=== PATIENT | male | born 1950 | race Caucasian/White ===

== ENCOUNTER 2016-10-14 19:10 | Inpatient (IN) | payer BC ==
[~2016-10-14] VITALS: Ht 179.1 cm; Wt 77.6 kg
--- NOTE | ~2016-10-14 | CR72 ---
[facility] A Service of [facility] & [facility] RADIOLOGY TEXT RESULTS PATIENT: SUNNY MENA JR LOCATION: [place] [id number] : [birth year] UNIT #: [id number] AGE: [address]: Jaleesa Yan MD SEX: M ORDER DR: [id number] [facility] [address] [facility]. [place], [place] [address] [id number] I MR#: [id number] Acc #: [id number] NAME: SUNNY MENA : 1950 SEX: M STUDY DATE/TIME: 10/21/2016 10:40 UNIT: [facility] ROOM: [facility] STUDY DESCRIPTION: CR Chest Single View Portable Attending Physician: Jaleesa Yan M.D. Ordering Physician: Yoav Wong M.D. Primary Care Physician: Primary Care Physician No MEDICAL IMAGING REPORT This report is preliminary unless electronic signature is present EXAM Portable chest, 10/21/2016 HISTORY Shortness of breath status post extubation today. Smoking history, followup infiltrates. FINDINGS Compared with 10/16/2016 the endotracheal tube has been removed. Right arm approach PICC line is unchanged. Nasogastric tube remains in place with tip below the diaphragm not visualized. Slight decrease in the diffuse bilateral infiltrates. Probable small left pleural effusion. No pneumothorax. IMPRESSION 1. Removal of endotracheal tube compared with 10/16/2016. 2. Slight decrease in the infiltrates throughout both lungs compared with the previous examination. Dictated by... Miller Rodriguez M.D. THIS IS AN ELECTRONICALLY VERIFIED REPORT Miller Rodriguez M.D. at 10/22/2016 10:34 AM TANO/kathleen TD: 10/21/2016 10:53 JOB #: [id number] MEDICAL IMAGING REPORT Page 1 of 1 COPY
--- NOTE | ~2016-10-14 | CR72 ---
[facility] A Service of [facility] & [facility] RADIOLOGY TEXT RESULTS PATIENT: SUNNY MENA JR LOCATION: [place] [address] : [birth year] UNIT #: [id number] AGE: [address]: Jaleesa Yan MD SEX: M ORDER DR: [id number] [place] [address] [place], [place] [address] [id number] I MR#: [id number] Acc #: [id number] NAME: SUNNY MENA JR : 1950 SEX: M STUDY DATE/TIME: 10/23/2016 4:27 UNIT: [facility] ROOM: [facility] STUDY DESCRIPTION: CR Chest Single View Portable Attending Physician: Jaleesa Yan M.D. Ordering Physician: Teddy Yadav M.D. Primary Care Physician: Primary Care Physician No MEDICAL IMAGING REPORT This report is preliminary unless electronic signature is present EXAM Portable chest INDICATIONS Respiratory failure. Follow-up. PROCEDURE Frontal view chest COMPARISON 10/22/2016 FINDINGS Heart size stable. Persistent interstitial prominence. No new dense opacity, large effusion or pneumothorax. IMPRESSION Stable. Dictated by... Javid Steele M.D. THIS IS AN ELECTRONICALLY VERIFIED REPORT Javid Steele M.D. at 10/24/2016 9:56 PM Magdalena TD: 10/23/2016 12:37 JOB #: [id number] MEDICAL IMAGING REPORT Page 1 of 1 COPY
--- NOTE | ~2016-10-14 | TOC ---
Unit #: [id number] #: [id number] Patient: SUNNY MENA JR [id number] [address] [address] [id number] I MR#: [id number] NAME: SUNNY MENA JR ROOM: 340 Age: 66 Sex: M Admission Date: 10/14/2016 : 1950 Attending Physician: Jaleesa Yan M.D. Primary Care Physician: Primary Care Physician No TRANSFER OF CARE SUMMARY DISCHARGE DIAGNOSES 1. Acute hypercapnic hypoxic respiratory failure. 2. Accidental overdose. 3. Aspiration pneumonia. 4. Chronic opiate use with fentanyl patch and [place] which he took extra. 5. Acute kidney injury. 6. Elevated troponin, status post cardiac cath, normal coronaries. 7. Chronic headaches with migraine headaches. 8. Anxiety. 9. Depression. 10. Benign prostatic hypertrophy. 11. Gastroesophageal reflux disease. 12. Acute non-Q-wave myocardial infarction. 13. Gastric ulcer 1 cm. 14. Anemia secondary to acute blood loss. 15. Oral dysphagia. 16. Toxic metabolic encephalopathy. 17. Hypokalemia. 18. Diarrhea, no C. Difficile. 19. Hypocalcemia. 20. Moderate protein malnutrition. 21. Diabetes mellitus, type 2, uncontrolled. 22. History of chronic lymphocytic leukemia, details unknown. CONSULTATIONS Dr. Beckham and Dr. Hardy and Dr. Yadav PROCEDURES EGD which shows a single gastric ulcer 1 cm in size, no stigmata if recent blood, distal erosive grade 2 esophagitis present. LAB DATA: WBC 14.2, hemoglobin 13.1, platelets 677, creatinine 0.7, potassium 2.8. Stool negative for C. difficile. Sputum culture normal respiratory naomy. Blood cultures negative. HOSPITALIZATION COURSE He is a 66 year old admitted because of shortness of breath: Acute hypercapnic and hypoxic respiratory failure, needing intubation, currently extubated, currently he is on four liters that he still needs to be weaned off before he leaves for home. The patient is refusing to go to rehab. Bilateral pneumonia, the patient was started on broad-spectrum Unit #: [id number] #: [id number] Patient: SUNNY MENA JR antibiotics, currently he is on Zosyn changed to p.o. upon discharge. Acute myocardial infarction, non-Q-wave, the patient is seen by cardiology, the patient had cardiac catheterization which shows normal coronaries and ejection fraction of 60%. Toxic metabolic encephalopathy, secondary to overdose, currently resolved. Accidental overdose with Fentanyl and Lortab, hold them, currently the patient is alert and oriented x2, occasionally confused. Diarrhea, C. difficile negative, oral dysphagia, the patient seen by speech likely from intubation. Continued modified as per speech. Gastric ulcer, continue Protonix. Anemia secondary to acute blood loss likely from gastri ulcer, hemoglobin stable currently, the patient's hemoglobin is 13.1. Currently the patient is on four liters. Discharge the patient once oxygen is better. The patient is refusing rehab but he still has generalized weakness, discussed with and this was discussed with Dr. Hardy, we were told to keep him here for monitoring of his oxygen. Dictated by... Brandon Pope/zeinab TD: 10/26/2016 08:51 JOB #: [id number] TRANSFER OF CARE SUMMARY Page 1 of 1 X Jaleesa Yan MD TRANSFER OF CARE SUMMARY
--- NOTE | ~2016-10-14 | EKG ---
PATIENT: SUNNY MENA UNIT #: [id number] Ventricular Rate: 86 BPM Atrial Rate: 86 BPM P-R Interval: 146 ms QRS Duration: 108 ms Q-T Interval: 388 ms QTC Calculation(Bezet): 464 ms P [place]: 76 degrees Calculated R [place]: 72 degrees Calculated T [place]: 4 degrees Diagnosis Line: Normal sinus rhythm Diagnosis Line: Cannot rule out Inferior infarct , age Diagnosis Line: undetermined Diagnosis Line: Abnormal ECG Diagnosis Line: When compared with ECG of 17-OCT-2016 06:10, Diagnosis Line: Minimal criteria for Inferior infarct are now Diagnosis Line: Present Diagnosis Line: Nonspecific T wave abnormality now evident in Diagnosis Line: Inferior leads Diagnosis Line: Nonspecific T wave abnormality now evident in Diagnosis Line: Anterolateral leads Diagnosis Line: Confirmed by YANETH WINN MD ([id number]) on 10/21/2016 Diagnosis Line: 1:57:18 PM INTERPRETING MD: PA CASAS
--- NOTE | ~2016-10-14 | CO ---
Unit #: [id number] #: [id number] Patient: SUNNY MENA JR [id number] [address] [place], [place] [address] [id number] I MR#: [id number] NAME: SUNNY MENA JR ROOM: [facility] Age: 66 Sex: M Admission Date: 10/14/2016 : 1950 Attending Physician: Jaleesa Yan M.D. Primary Care Physician: Primary Care Physician No CONSULTATION REPORT TYPE OF CONSULTATION Renal consult. REASON FOR CONSULTATION Evaluation of renal insufficiency. HISTORY OF PRESENT ILLNESS This is a 66-year-old white gentleman with no apparent history of renal insufficiency. The patient has a history of migraine headaches. He wears a Fentanyl patch, which he takes it every four days. He filled bottle of hydrocodone three days ago and was found by his to be very somnolent. She checked his pill bottle and found that he had taken 25 tablets over the last three day period. EMS was called and patient was given Narcan due to excessive somnolence. Despite this he required mechanical intubation and certainly experienced excessive vomiting and aspiration. He was brought into the emergency room whereupon he was suctioned and reintubated. The patient was found to have an elevated troponin level with concerns for possible acute rhabdomyolysis. He also has an elevated CPK over 6000 and has been on IV fluids for this condition. He is currently poorly responsive, sedated and on a ventilator. He has no additional medical history. PAST MEDICAL HISTORY From the chart, past medical history includes migraine headaches, benign prostatic hypertrophy, GERD, anxiety and depression. He also carries a diagnosis of lymphocytic leukemia. MEDICATIONS Include Zomig, p.r.n. migraines, aspirin p.r.n., hydrocodone 10/25 one p.o. q. 4hours p.r.n. pain, Xanax 0.5 mg p.o. q.i.d., Prilosec 40 mg daily, Flomax 0.4 mg p.o. daily, Wellbutrin 150 mg daily, Proscar 5 mg daily, Lipitor 40 mg daily and Zoloft 100 mg p.o. daily. SOCIAL HISTORY Shows that he is a heavy tobacco user, smoking two packs per day, does not drink alcohol or use street drugs. He is and lives with his . REVIEW OF SYSTEMS Unobtainable due to the patient intubated state. PHYSICAL EXAMINATION GENERAL: This is a sedated white gentleman who is on the ventilator, in no apparent distress. VITAL SIGNS: Show a temperature of 99.5, pulse of 94, respiration of 22, Unit #: [id number] #: [id number] Patient: SUNNY MENA JR blood pressure of 127/67. HEENT: Shows the pupils to be equal, reactive to light, but no extraocular motility. The oropharynx show the patient to be orally intubated. The patient's mucosa appears to be intact. NECK: Supple with 2+ carotid pulses. No carotid bruits or JVD. HEART: Regular rhythm without murmurs, gallops or rubs. LUNGS: Clear without rales, rhonchi or wheezes. ABDOMEN: Obese, soft, and nontender with diminished bowel sounds. No hepatosplenomegaly. No CVA tenderness. VASCULAR: Femoral pulses are 2+ and equal bilaterally. EXTREMITIES: Show no clubbing, no cyanosis and no significant pretibial edema. There are 2+ pedal and radial pulses noted. DIAGNOSTIC STUDIES LABORATORY RESULTS: Laboratory findings show the following: Blood gas with a pH of 7.36, pCO2 of 48, pO2 of 50. Glucose 145, BUN is 29, creatinine is 2.1, sodium 140, potassium 3.9, chloride 103, CO2 of 33, calcium of 7.8, total protein of 5.8, albumin is 2.8, total bilirubin is 0.7. AST is 123, ALT is 49, alkaline phosphatase 46, CK total is 6242, troponin level is elevated at 4, lactic acid is 5.9, white is 4800, hematoglobin and hematocrit are 13 and 41.3 respectively, platelet count is 162,000. Urinalysis shows a specific gravity of 1.019, pH of 5, 1+ protein, positive ketones, 3+ blood and occasional white cells. There are hyaline casts seen; otherwise, unremarkable. IMPRESSION 1. Acute renal failure, most likely secondary to hypotension, possibly acute rhabdomyolysis. 2. Drug overdose. 3. Abnormal liver function tests possibly related to medications or possibly acetaminophen toxicity. 4. Acute myocardial infarction. 5. Sepsis. 6. Aspiration pneumonia. 7. Migraine headaches. PLAN Agree with IV fluids and aggressive rehydration. Would hold on cardiac catheterization until patient is more stable. Would obtain Tylenol level to rule out the possibility of Tylenol overdose. We will monitor for other medical renal needs. Would avoid nephrotoxic agents at this time. Thank you very much for allowing us to participate in this patient's care. We will follow along with you. Dictated by... Rodrigo Green Jr., MElijah. SHAHEEN/laura TD: 10/16/2016 15:17 JOB #: [id number] Unit #: [id number] #: [id number] Patient: SUNNY MENA JR CONSULTATION REPORT Page 1 of 1 X Rodrigo Green Jr, MD X CONSULTATION REPORT
--- NOTE | ~2016-10-14 | OR ---
Unit #: [id number] #: [id number] Patient: SUNNY MENA, [id number] [address] [place], [place] [address] [id number] I MR#: [id number] NAME: SUNNY MENA ROOM: [facility] Date of Procedure: 10/20/2016 Admission Date: 10/14/2016 Surgeon: Teddy Yadav M.D. : 1950 Attending Physician: Jaleesa Yan M.D. Primary Care Physician: Primary Care Physician No OPERATIVE REPORT PREOPERATIVE DIAGNOSIS Presumed gastrointestinal bleed. PROCEDURES PERFORMED Upper gastrointestinal endoscopy and biopsy. POSTOPERATIVE DIAGNOSES 1. The patient had a single gastric ulcer about a 1 cm in size grayish-white ulcer base and no stigmata of recent bleed. This is present on the lesser curve. 2. Distal erosive grade 2 esophagitis. 3. Rest of the examination up to third part of duodenum was normal. A biopsy obtained from the antrum for CLOtest. In addition, his gastric tube was placed with its tip in the antrum for both suction as well as antral feeding. RECOMMENDATIONS 1. Resume the tube feeds as desired through the Dobbhoff tube. 2. Repeat CBC and CMP in the morning. SEDATION USED Procedural sedation. DESCRIPTION OF PROCEDURE Following detailed explanation of the potential risks and complications of an upper endoscopy, namely perforation, bleeding, and complications related to sedation, the patient was brought to GI lab and laid in the supine position with head of the bed elevated. Procedure was done in intensive care unit bedside. The patient was intubated at the time of examination. Lubricated tip of the Olympus video upper endoscope was passed through the bite block into the proximal esophagus under direct vision. The entire esophageal mucosa was examined. The patient noted to have grade 1 to 2 distal erosive esophagitis. The scope was then advanced into the gastric cavity and the latter was insufflated. Mucosa of the fundus, body, and antrum examined. Single 1 cm gastric ulcer was noted in the lesser curve of the stomach. On the incisura, this was grayish white ulcer base. No stigmata of recent bleed. The pylorus was intubated with visualization of the normal duodenal bulb and second and third part of the duodenum. Upon withdrawal and retroflexion, incisura, cardia, and greater curve examined and a biopsy obtained from the antrum for CLOtest. The scope was withdrawn in the distal esophagus. Entire esophageal mucosa was examined all the way up to pharynx. No additional findings noted. Unit #: [id number] #: [id number] Patient: SUNNY MENA JR A Dobbhoff tube was then placed endoscopically with the tip of the tube maintained in the antrum guided via visual examination of the endoscope. It was maintained, positioned, and anchored outside the patient's external nares. The scope was then withdrawn. The patient tolerated the procedure without any postprocedure complications. Dictated by... Brandon Mesa/laura TD: 10/22/2016 19:58 JOB #: [id number] CC: Jaleesa Yan M.D. OPERATIVE REPORT Page 1 of 1 X Teddy Yadav MD X PROCEDURE OPERATIVE NOTE
--- NOTE | ~2016-10-14 | DS ---
Unit #: [id number] #: [id number] Patient: SUNNY MENA JR [id number] [address] [address] [id number] I MR#: [id number] NAME: SUNNY MENA JR ROOM: [facility] Age: 66 Sex: M Admission Date: 10/14/2016 : 1950 Discharge Date: 10/27/2016 Attending Physician: Jaleesa Yan M.D. Primary Care Physician: Primary Care Physician No DISCHARGE SUMMARY PRIMARY CARE PHYSICIAN Dr. Ma FINAL DIAGNOSES 1. Acute hypercapnic hypoxia respiratory failure. 2. Accidental overdose. 3. Aspiration pneumonia. 4. Chronic opiates used were [place] and [place]. 5. Acute kidney injury. 6. Elevated troponins SECONDARY DIAGNOSES 1. Anxiety/depression. 2. Benign prostatic hypertrophy. 3. Gastroesophageal reflux disease. 4. Acute non-Q-wave myocardial infarction. 5. Gastric ulcer. 6. Anemia secondary to acute blood loss. 7. Dysphagia. 8. Toxic metabolic encephalopathy. 9. Hypokalemia. 10. Diarrhea, 11. Hypocalcemia. 12. Diabetes mellitus, type 2, uncontrolled. 13. History of chronic lymphocytic leukemia. CONSULTS 1. Dr. Beckham 2. Dr. Hardy 3. Dr. Yadav PROCEDURES He had an EGD with peptic ulcer 1 cm in size with no stigmata recent bleed. HISTORY OF PRESENT ILLNESS Cmufw-hecs-chrr-old gentleman, who was admitted for shortness of breath. He had respiratory failure. He had taken some more of his narcotics that he was prescribed. He was intubated initially and subsequently extubated. He was noted to have bilateral pneumonia, also on broad spectrum antibiotics, currently was on Zosyn, and this has been transitioned to Augmentin upon discharge. Acute myocardial infarction non-Q-wave, cardiology saw the patient and had a cardiac catheterization which showed normal coronaries with ejection Unit #: [id number] #: [id number] Patient: SUNNY MENA JR fraction of 60%. His medications have been optimized at this time. Toxic metabolic encephalopathy secondary to overdose and multiple comorbidities. This is apparently resolved at this time. Accidental drug overdose, will follow up with his primary care provider for this. While he was admitted, he had some diarrhea which was negative for C. Difficile. For his gastric ulcer we will treat him with Protonix. Anemia, hemoglobin, has been stable. He will be discharged in stable condition. He is no longer on oxygen. He is off the oxygen for in at this time this morning; however, respiratory therapy evaluated for home O2 and he did qualify, he will be on two liters of oxygen upon discharge. He was evaluated and is in stable condition for follow up with his primary care physician in the next jqon-lc-ifqe days. He will follow up with Dr. Hardy/Dr. Wong in about one-to-two weeks. MEDICATIONS ON DISCHARGE Include: 1. Tylenol 650 mg p.o. q.4h p.r.n. 2. Wellbutrin 75 mg p.o. twice daily 3. Zoloft 100 mg p.o. daily 4. Trazodone 100 mg p.o. at bedtime 5. Lipitor 80 mg at bedtime 6. Risperdal 0.5 mg p.o. twice daily 7. Lopressor 75 mg p.o. twice daily 8. Bisacodyl 10 mg rectally daily 9. Docusate 100 mg p.o. twice daily 10. MiraLAX 17 grams p.o. daily p.r.n. 11. Lasix 20 mg p.o. daily 12. Zestril 10 mg p.o. daily 13. Aspirin 81 mg p.o. daily 14. Percocet 10/325 one tablet p.o. q.4h p.r.n. 15. Augmentin 875 mg p.o. daily for five days 16. Spironolactone 25 mg p.o. daily 17. Potassium 40 mEq p.o. daily 1. Follow up with primary care physician in otbzr-zu-egvo days. 2. Pulmonary in one-to-two weeks. He is to call for an appointment. Time spent coordinating discharge is about forty minutes. Dictated by... Brandon Vega/zeinab TD: 10/28/2016 05:03 JOB #: [id number] Unit #: [id number] #: [id number] Patient: SUNNY MENA JR DISCHARGE SUMMARY Page 1 of 1 X Teetee Parker MD DISCHARGE SUMMARY
--- NOTE | ~2016-10-14 | CR63 ---
[facility] A Service of [facility] & [facility] RADIOLOGY TEXT RESULTS PATIENT: SUNNY MENA JR LOCATION: [facility] 340-01 : [birth year] UNIT #: [id number] AGE: [address]: Jaleesa Yan MD SEX: M ORDER DR: [id number] [place] [id number] [facility]. [place], [place] [address] [id number] I MR#: [id number] #: [id number] NAME: SUNNY MENA JR : 1950 SEX: M STUDY DATE/TIME: 10/26/2016 14:33 UNIT: [address] ROOM: [facility] STUDY DESCRIPTION: CR Chest 2 View Attending Physician: Jaleesa Yan M.D. Ordering Physician: Yoav Wong M.D. Primary Care Physician: Primary Care Physician No MEDICAL IMAGING REPORT This report is preliminary unless electronic signature is present EXAM Two-view chest INDICATIONS Shortness of air for 3 days. Cough and congestion. TECHNIQUE PA and lateral views of the chest compared to 10/24/2016. FINDINGS Heart and mediastinal contours normal. There is background COPD. There are some chronic interstitial changes. No pneumothorax. IMPRESSION No interval change. Dictated by... Shane Rey M.D. THIS IS AN ELECTRONICALLY VERIFIED REPORT Shane Rey M.D. at 10/27/2016 1:27 PM RPC/reyna TD: 10/27/2016 12:46 JOB #: [id number] MEDICAL IMAGING REPORT Page 1 of 1 COPY
--- NOTE | ~2016-10-14 | EKG ---
PATIENT: SUNNY MENA UNIT #: [id number] Ventricular Rate: 89 BPM Atrial Rate: 89 BPM P-R Interval: 142 ms QRS Duration: 96 ms Q-T Interval: 396 ms QTC Calculation(Bezet): 481 ms P [place]: 68 degrees Calculated R [place]: 38 degrees Calculated T [place]: 26 degrees Diagnosis Line: Normal sinus rhythm Diagnosis Line: Prolonged QT Diagnosis Line: Abnormal ECG Diagnosis Line: When compared with ECG of 19-OCT-2016 12:48, Diagnosis Line: T wave inversion less evident in Inferior leads Diagnosis Line: Nonspecific T wave abnormality no longer evident Diagnosis Line: in Anterolateral leads Diagnosis Line: Confirmed by ALESSANDRA CUADRA MD ([id number]) on 10/30/2016 Diagnosis Line: 7:27:36 AM INTERPRETING MD: KHALIF CASAS
--- NOTE | ~2016-10-14 | A ---
[facility] DATE: 10/15/16 Patient: SUNNY MENA JR Physician: ROOSEVELT Address: [address] [place] [address] ROAD Room/Bed: [address], Zip: [place] [address] Admit Date: 10/14/16 Date of : [birth year] Height: 5 10.5 Weight: 194 88 NUTRITIONAL ASSESSMENT: REASON: NPO, intubated Admitting dx: 66 y/o male admitted with accidental overdose, aspiration PNA and respiratory failure PMH: BPH, HLD, GERD, anxiety, depression, chronic lymphocytic leukemia, chronic pain on fentanyl patch Anthropometrics: Ht: 70.5", Wt: 88 kg, BMI: 27 (overweight) Labs: creat 2.7, AST 82, GFR 23.8 Meds: Levophed, Na bicarb, PPI, fentanyl, versed, IV Abx, zofran prn, propofol @ 18.3 ml/hr I/O & Bowel function: Last BM unknown, NGT R nare, adequate UOP per nursing Skin Integrity: Reviewed; nothing significant, trace edema BLE Estimated Nutrition Needs: 9877-2169 kcals/day (20-25 kcals/kg) 70-99 g protein/day (0.8-1.0 g/kg) Fluids consistent with kcal needs or per MD Assessment: Chart reviewed, events noted. See admitting dx and PMH as stated above. Patient discussed during AM rounds. He is currently intubated and sedated, propofol providing 483 lipid kcals at current rate. No family at bedside at this time. RD to provide EN recs as stated below. Will follow hospital course. Dx: Inadequate energy intake r/t vent dependence, clinical condition AEB NPO x 2 days, possible need for EN. Intervention: EN recs as stated below Monitoring, Evaluation and Goals: 1. EN consistent with estimated needs (tolerate @ goal rate). 2. Labs WNL. Monitor: per protocol, criteria to determine if above goals met [facility] DATE: 10/15/16 Patient: SUNNY MENA JR Physician: ROOSEVELT Address: [address] Room/Bed: [address], Zip: [place] [address] Admit Date: 10/14/16 Date of : [birth year] Height: 5 10.5 Weight: 194 88 Recommendations: 1. If the patient is to remain intubated for > 48 hours start enteral nutrition with Jevity 1.5 @ 20 ml/hr and increase by 10 ml q 4 hours until goal rate of 40 ml/hr is reached (goal rate WITH propofol). Please order 30 ml Prostat to be given daily via tube. This nutrition regimen + kcals from propofol will provide 990 ml, 2023 kcals, 76 g protein and 730 ml water. Once at goal rate add 200 ml free water flushes q 4 hours or per MD. If propofol is D/C please discontinue Prostat and increase enteral nutrition rate to new goal rate of 55 ml/hr, to provide 1320 ml, 1980 kcals, 84 g protein and 1003 ml water. Adjust free water flushes to 250 ml QID, or per MD. 2. If extubated advance to oral diet per RECORD PRESS OPERATOR recs with no other dietary restrictions. RD will follow Moderate-severe nutrition risk Respectfully, Clarisa Santos, MARIELOS, LD [facility] cc: client file
--- NOTE | ~2016-10-14 | CR72 ---
[facility] A Service of [facility] RADIOLOGY TEXT RESULTS PATIENT: SUNNY MENA JR LOCATION: [place] [id number] : [birth year] UNIT #: [id number] AGE: [address]: Jaleesa Yan MD SEX: M ORDER DR: [id number] [facility] [address] [place], [place] [address] [id number] I MR#: [id number] Acc #: [id number] NAME: SUNNY MENA : 1950 SEX: M STUDY DATE/TIME: 10/22/2016 6:22 UNIT: [facility] ROOM: [facility] STUDY DESCRIPTION: CR Chest Single View Portable Attending Physician: Jaleesa Yan M.D. Ordering Physician: Ángela Batista M.D. Primary Care Physician: No Primary Care Physician MEDICAL IMAGING REPORT This report is preliminary unless electronic signature is present EXAM Portable chest, 10/22. INDICATIONS Follow up respiratory failure for 8 days. COMPARISON 10/21. FINDINGS A portable view of the chest was obtained. PIC catheter and Dobbhoff tube are in good position. There is some minimal left base atelectasis otherwise lungs are clear. IMPRESSION No change. Minimal left base atelectasis. Dictated by... Giorgio Muñoz M.D. THIS IS AN ELECTRONICALLY VERIFIED REPORT Giorgio Muñoz M.D. at 10/22/2016 3:08 PM FEL/bd TD: 10/22/2016 08:47 JOB #: [id number] MEDICAL IMAGING REPORT Page 1 of 1 COPY
--- NOTE | ~2016-10-14 | FU ---
[facility] Nutrition Therapy DATE: 10/22/16 Patient: SUNNY MENAJR Physician: ROOSEVELT Address: [address] Room/Bed: [address], Zip: [place] [address] Admit Date: 10/14/16 Date of : 54 Height: 5 10.5 Weight: 187 85 NUTRITION MONITORING/FOLLOW-UP: Reason: Enteral nutrition follow-up Admitting dx: 66 y/o male admitted with accidental OD resulting in aspiration PNA and respiratory failure Anthropometrics: Ht: 70.5", admission wt: 88 kg, current wt: 85 kg, BMI: 27 (overweight; based on admission wt) Labs: K+ 3.4, glucose 147, POC 126, BUN 30 Meds: PPI, miralax, nacl, bisacodyl, zofran prn GI: diarrhea x 2, FMS to gravity Skin: reviewed; nothing significant, no edema Estimated Nutrition Needs: 0614-1488 kcals/day (20-25 kcals/kg admission wt) 70-88 g protein/day (0.8-1.0 g/kg admission wt) Fluids consistent with kcal needs or per MD Assessment: Chart reviewed, events noted. Patient extubated yesterday 10/21, now on 4L nasal cannula, precedex being weaned, levophed off. EN started yesterday on 10/21 after OGT was removed and DHT was placed, got to goal rate of 35 ml/hr (goal WITH propofol which has now been D/C). EN currently off at this time for HEAD PASTRY CHEF eval. Of note, in the patient's EN order there is no formula or rate specified. See nutrition dx, goals and recs as stated below. Will continue to follow hospital course. Dx: Inadequate energy intake r/t vent dependence, clinical condition AEB NPO, need for EN - RESOLVED New nutrition dx: Inadequate oral intake r/t awaiting HEAD PASTRY CHEF eval AEB NPO, need for HEAD PASTRY CHEF, EN off. Intervention: PO diet per HEAD PASTRY CHEF vs restarting EN Monitoring, Evaluation and Goals: 1. EN to meet estimated nutritional needs - NO LONGER RELEVANT (pt extubated, awaiting HEAD PASTRY CHEF) 2. Labs WNL - IN PROGRESS (see labs above) [facility] Nutrition Therapy DATE: 10/22/16 Patient: SUNNY MENA JR Physician: ROOSEVELT Address: [address] Room/Bed: [address], Zip: [place] [address] Admit Date: 10/14/16 Date of : 54 Height: 5 10.5 Weight: 187 85 3. Normalize GI function - NOT MET/IN PROGRESS (+ diarrhea, FMS in place) New goal (in addition to above/in place of goal 1.): Tolerance of oral diet advancement vs EN to meet nutritional needs Monitor: per protocol, criteria to determine if above goals met Recommendations: 1. PO diet per HEAD PASTRY CHEF only. RD recommending regular diet. 2. If patient fails HEAD PASTRY CHEF eval restart enteral nutrition with Jevity 1.5 @ 20 ml/hr and increase by 10 ml q 4 hours until goal rate of 55 ml/hr is reached, to meet 100% of estimated nutritional needs. 3. Replace lytes prn (K+ low). Status: Moderate nutrition risk Respectfully, Clarisa Santos, RD, LD Food and Nutritional Services [facility] cc: client file
--- NOTE | ~2016-10-14 | CR7 ---
[facility] A Service of [facility] RADIOLOGY TEXT RESULTS PATIENT: SUNNY MENA JR LOCATION: [place] [address] : [birth year] UNIT #: [id number] AGE: [address]: Jaelesa Yan MD SEX: M ORDER DR: [id number] [facility] [address] [facility]. [place], [place] [address] [id number] I MR#: [id number] Acc #: [id number] NAME: SUNNY MENA : 1950 SEX: M STUDY DATE/TIME: 10/16/2016 22:19 UNIT: [facility] ROOM: [facility] STUDY DESCRIPTION: CR Abdomen Single AP View Attending Physician: aJleesa Yan M.D. Ordering Physician: Mohan Hardy M.D. Primary Care Physician: No Primary Care Physician MEDICAL IMAGING REPORT This report is preliminary unless electronic signature is present EXAM AP abdomen. HISTORY Abdomen pain for 2 days. FINDINGS The bowel gas pattern is normal. No bowel dilatation or displacement. No abnormal calcifications. NG tube tip is at the level of the proximal descending duodenum. Moderate degenerative changes in the lumbar spine. Minimal right lumbar curve. IMPRESSION No acute findings. Bowel gas pattern is normal. Dictated by... Greg Menchaca M.D. THIS IS AN ELECTRONICALLY VERIFIED REPORT Greg Menchaca M.D. at 10/17/2016 4:37 AM DFL/natalia TD: 10/17/2016 00:03 JOB #: [id number] MEDICAL IMAGING REPORT Page 1 of 1 COPY
--- NOTE | ~2016-10-14 | CR72 ---
[facility] A Service of [facility] & [facility] RADIOLOGY TEXT RESULTS PATIENT: SUNNY MNEA JR LOCATION: [place] [id number] : [birth year] UNIT #: [id number] AGE: [address]: Jaleesa Yan MD SEX: M ORDER DR: [id number] [facility] [address] [facility]. [place], [place] [address] [id number] I MR#: [id number] Acc #: [id number] NAME: SUNNY MENA : 1950 SEX: M STUDY DATE/TIME: 10/14/2016 19:40 UNIT: [facility] ROOM: [facility] STUDY DESCRIPTION: CR Chest Single View Portable Attending Physician: Ángela Batista M.D. Ordering Physician: Joseph Smyth M.D. Primary Care Physician: Primary Care Physician No MEDICAL IMAGING REPORT This report is preliminary unless electronic signature is present EXAM Portable chest HISTORY 66-year-old male unresponsive, incoherent, respiratory distress. ET tube placement. FINDINGS Portable view of the chest demonstrates endotracheal tube in satisfactory position, approximately 4 cm above the wil. Nasogastric tube courses through mediastinum within the stomach. Diffuse haziness over both lungs, left greater than right suggest developing pulmonary edema. Probable trace amount of left pleural fluid. Heart, mediastinum unremarkable. No pneumothorax. Dictated by... Sonido Avitia M.D. THIS IS AN ELECTRONICALLY VERIFIED REPORT Sonido Avitia M.D. at 10/15/2016 2:32 PM HILLARY/jacek TD: 10/15/2016 06:54 JOB #: [id number] MEDICAL IMAGING REPORT Page 1 of 1 COPY
--- NOTE | ~2016-10-14 | EKG ---
PATIENT: SUNNY MENA UNIT #: [id number] Ventricular Rate: 82 BPM Atrial Rate: 82 BPM P-R Interval: 152 ms QRS Duration: 112 ms Q-T Interval: 412 ms QTC Calculation(Bezet): 481 ms P [place]: 74 degrees Calculated R [place]: 49 degrees Calculated T [place]: 49 degrees Diagnosis Line: Normal sinus rhythm Diagnosis Line: Prolonged QT Diagnosis Line: Abnormal ECG Diagnosis Line: When compared with ECG of 16-OCT-2016 06:08, Diagnosis Line: No significant change was found Diagnosis Line: Confirmed by QUIQUE SEVERINO MD ([id number]) on Diagnosis Line: 10/18/2016 4:37:17 PM INTERPRETING MD: RICKY
--- NOTE | ~2016-10-14 | FU ---
[facility] Nutrition Therapy DATE: 10/18/16 Patient: SUNNY MENA JR Physician: ROOSEVELT Address: [address] [place] [address] ROAD Room/Bed: [address], Zip: [place] [address] Admit Date: 10/14/16 Date of : 54 Height: 5 10.5 Weight: 196 89 NUTRITION MONITORING/FOLLOW-UP: Reason: Follow up Anthropometrics: Ht: 70.5" Wt: 88 kg BMI: 27 Wt 10/18: 89 kg Labs: Na+ 134 Cl- 99 Gluc 192 Ca++ 7.6 Alb 2.3 AST 46 Meds: Propofol @ 26.1 ml/hr, D5%, protonix, fentanyl, versed, levophed, NaCl I&O's: 6923/8444, last BM 10/18, OGT discontinued Skin: Scattered bruising BUE Edema: BUE/ BLE generalized Estimated Nutrition Needs: 9424-2512 kcals (20-25 kcals/kg) 70-88 grams protein (0.8-1.0 grams/kg) Diet: NPO Assessment: Chart reviewed, events noted. Pt remains intubated and sedated in the ICU. Propofol is currently providing 689 kcals from lipids at this time. Pt has been NPO without nutrition and OG to suction since admission. OG to suction has been discontinued at this time, and OG tube remains in place. Pt's abdomen is somewhat distended and tender per RN report. Please see recommendations below. Dx: Inadequate energy intake RT vent dependence, clinical condition AEB NPO x 2 days, possible need for EN- ACTIVE Intervention: 1. EN recs as stated below Monitoring, Evaluation and Goals: 1. EN; initiate, tolerate at goal rate 2. Improve labs; Gluc, AST, Na+ 3. GI; promote regular GI function Recommendations: 1. Once medically feasible, recommend initiating enteral nutrition with Jevity 1.5 @ 20 [facility] Nutrition Therapy DATE: 10/18/16 Patient: SUNNY MENA JR Physician: ROOSEVELT Address: [address] [place] [address] ROAD Room/Bed: [address], Zip: [place] [address] Admit Date: 10/14/16 Date of : 54 Height: 5 10.5 Weight: 196 89 mL/hr. Increase by 10 mL q 6 hrs as tolerated to indicated goal rate: WHILE THE PT IS RECEIVING PROPOFOL: -Increase Jevity 1.5 to 35 mL/hr + 30 mL Prostat BID to provide: 2149 kcals/ 84 grams protein/ 638 mL free H20 -Once at goal rate, add 200 mL free H20 flushes q 4 hrs or per MD WHEN PROPOFOL IS DISCONTINUED: -Discontinue Prostat -Increase Jevity 1.5 to 55 mL/hr to provide: 1320 mL, 1980 kcals/ 84 grams protein/ 1003 mL free H20 -Adjust free H20 flsuhes to 250 mL q 6 hrs or per MD orders 2. Monitor GI function closely noting abdominal distension and tenderness. 3. If the pt is extubated, advance to PO diet per [employer] recommendations with no other dietary restrictions. Status: Pt is at moderate-severe nutritional risk. RD will continue to follow hospital course per protocol. Respectfully, LUCIANA FISHER RD, LD Food and Nutritional Services [facility] cc: client file
--- NOTE | ~2016-10-14 | CO ---
Unit #: [id number] #: [id number] Patient: SUNNY BAHENA JR [id number] [address] [address] [id number] I MR#: [id number] NAME: SUNNY BAHENA JR ROOM: [facility] Age: 66 Sex: M Admission Date: 10/14/2016 : 1950 Attending Physician: Jaleesa Yan M.D. Primary Care Physician: Primary Care Physician No Consultation Date: 10/15/2016 CONSULTATION REPORT REASON FOR CONSULTATION Elevated troponin. HISTORY OF PRESENT ILLNESS This is a 66-year-old white male, with a history of hypertension, hyperlipidemia, COPD, chronic leukocytosis possibly chronic lymphocytic leukemia, nicotine abuse, chronic back pain, who was brought into the emergency room with an unintentional drug overdose. The patient currently sedated and intubated. According to the information by the hospitalist and information obtained from the family, his noticed yesterday afternoon that he was hard to arouse. She knows he wears a fentanyl patch of 100 mcg which he changes every four days. He had just recently filled his prescription of hydrocodone 10/325 three days prior. She went and checked on him and then counted his hydrocodone and realized he took 25 extra pills over the past 3 days. EMS was called by the , they found him according to information unarousable, they gave him some IV Narcan, they intubated the patient en route. He did experience some vomiting and there may have been some aspiration during the process. There is no indication from the that the patient was complaining of any chest pain; pain in the neck, bilateral jaws, shoulders, arms, or elbow. He had not been complaining of any palpitations or dizziness. In the emergency room, the patient's blood pressure was 116/73, heart rate 112, respirations 16, and he was afebrile. Chest x-ray is consistent with bilateral aspiration pneumonia. He became some hypotensive surely after arrival and he had to be started on epinephrine. The patient was admitted with an accidental overdose. Since admission, his cardiac enzymes were done and his initial CK-MB was 59.9 with troponin 0.33 and later his troponin increased to 4.0. CK total 6242. The patient's creatinine is 2.7, later 2.1. WBCs are 7.9. His EKG shows normal sinus rhythm, some nonspecific changes, nothing acute. Cardiology consult to assist with evaluation and management and treatment of acute non-ST elevated UT. PAST MEDICAL HISTORY 1. Hypertension. 2. Hyperlipidemia. 3. COPD. 4. History of DVT. 5. Chronic back pain. 6. History of migraine headaches. 7. BPH. 8. Chronic leukocytosis questionable chronic lymphocytic leukemia. 9. In 2012, 2D echo, LVEF of 50% to 55%. Impaired LV relaxation. Unit #: [id number] #: [id number] Patient: SUNNY BAHENA JR 10. In 2012, Cardiolite Lexiscan showed LVEF of 60%. Decreased uptake in the apical segment, however, no ischemia. 11. In 2012, during hospitalization, he had nonsustained ventricular tachycardia likely secondary to electrolyte imbalance. 12. Nicotine abuse. PAST SURGICAL HISTORY None was documented. HOME MEDICATIONS These are taken from the patient's last office visit with his primary care physician. Xanax 0.5 mg one tablet p.o. q.i.d., Zomig 5 mg one tablet p.r.n. for migraine may repeat once in 2 hours, Imitrex 50 mg one tablet p.o. p.r.n. for migraines, promethazine 25 mg one tablet p.r.n., sertraline 100 mg p.o. daily, finasteride 5 mg one tablet daily, Flomax 0.4 mg one tablet p.o. daily, Wellbutrin XL 150 mg p.o. frequency unavailable, atorvastatin 40 mg one tablet daily at bedtime, fentanyl patch 100 mcg every 72 hours, omeprazole 40 mg one tablet daily, and then hydrocodone/acetaminophen 10/325 increased on 10/01/2016 to one tablet every 6 hours p.r.n. for pain. ALLERGIES No known drug allergies. SOCIAL HISTORY The patient lives with his spouse. He was smoking up to 2 packs of cigarettes a day up until 2 years ago and he switched over to an e-cigarette. No alcohol or illicit drug abuse. FAMILY HISTORY Positive for coronary artery disease and pancreatic cancer. REVIEW OF SYSTEMS See details in HPI. PHYSICAL EXAMINATION GENERAL: Mr. Bahena is a 66-year-old white male. He is intubated and sedated. VITAL SIGNS: Currently blood pressure is 101/62, heart rate is 100, respirations 24, temperature is 101.5, O2 saturations 100% on ventilator. NECK: Trachea midline. No thyromegaly or lymphadenopathy. Normal carotid upstrokes. No jugular venous distention. HEART: S1 and S2. Regular rate and rhythm. No clicks, murmurs, or rubs. LUNGS: Diminished. ABDOMEN: Obese, soft, nontender. EXTREMITIES: Pedal pulses are palpable. Trace pedal edema. DIAGNOSTIC STUDIES LABORATORY RESULTS: Today's labs, the pH is 7.287, pCO2 is 50.6, pO2 is 101, O2 saturations 96.3 that is on FiO2 of 80%. Later ABG shows pH is 7.336, pCO2 is 48.5, PO2 is 50, O2 saturation 82.5 that is on FiO2 of 80. Glucose is 145, BUN 29, creatinine 2.1 down from 2.7 on admission, eGFR 32.3, sodium 140, potassium 3.9, chloride 103, CO2 of 22, calcium 7.8, total protein 5.3, albumin 2.8. Bilirubin total 0.7, AST 123, ALT 49, alkaline phosphatase is 46. CK total is 6242. Lactic acid on admission was 7.0 and today is 5.9. Unit #: [id number] #: [id number] Patient: SUNNY BAHENA JR WBCs 4.8, hemoglobin 13.0, hematocrit 41.3, and platelets are 162. Initial cardiac enzymes; CK-MB is 59.9, troponin 0.33. Repeat cardiac enzymes CK total is 6242, MB is 177.8, percentage of MB 2.8, and troponin is 4.0. Lactic acid is 5.9. IMAGING STUDIES: Chest x-ray on admission shows diffuse haziness over both lungs, left greater than right suggesting developing pulmonary edema probable trace of left pleural effusion. CT of the head without contrast shows nothing acute. Chest x-ray, later shows moderately extensive in interstitial infiltrates in the lungs bilaterally. CARDIOVASCULAR STUDIES: EKG shows normal sinus rhythm with ventricular rate 100 beats per minute, nonspecific ST-T wave abnormalities in the inferior, anterior, and lateral leads. Some T-wave inversion in anterior leads. Poor R-wave progression, left atrial abnormality, low voltage in inferior leads and questionable Q waves in lead III. IMPRESSION 1. Accidental overdose. 2. Acute hypoxic hypercapnic respiratory failure. 3. Aspiration pneumonia. 4. Acute kidney injury. 5. Mildly elevated troponin. 6. Chronic pain syndrome. Has also history of migraines. 7. Probable chronic lymphocytic leukemia according to the family. 8. Hypotension. 9. Sepsis. 10. Non-ST elevated myocardial infarction. 11. Hypertension, but having some hypotension. 12. Hyperlipidemia. 13. Chronic obstructive pulmonary disease. 14. History of deep vein thrombosis. 15. History of migraines. 16. Benign prostatic hypertrophy. 17. Nicotine abuse. 18. Left ventricular ejection fraction was 50% to 55% on last echo in 2011 and normal stress test in 2012 with ejection fraction of 60%. No ischemia. PLAN 1. Cardiology consult to assist with evaluation and management. 2. The patient's troponins peaked at 4.0. We will treat for a non-STEMI. 3. The patient will be ordered aspirin 325 mg p.o. daily and anticoagulate with Lovenox 1 mg subcu daily, renal dosing, therapeutic dosing. 4. We will obtain a fasting lipid profile, TSH, and evaluate. 5. We will stop the heparin drip, because of initiating the Lovenox. 6. The patient currently on Levophed for pressors to maintain blood pressure greater than 100 mmHg. 7. Obtain a 2D echo to re-evaluate his LV function and valves. 8. The patient is on IV maintenance fluids which is half-normal saline with 1 amp of bicarb at 200 mL/hour. 9. The patient will need renal evaluation and advised will need a heart Unit #: [id number] #: [id number] Patient: SUNNY BAHENA JR catheterization as soon as the patient is stable. We will talk to the patient about the risks and benefits of the procedure. 10. Obtain a fasting lipid profile and evaluate. 11. Continue on other home medications. 12. Further recommendations pending per Dr. Beckham. Thank you very much for allowing us to assist in the care. Dictated by... Georgia Norris/laura TD: 10/16/2016 12:19 JOB #: [id number] CC: [facility] [place] [facility] CONSULTATION REPORT Page 1 of 1 X Leela Lei APRN CONSULTATION REPORT
--- NOTE | ~2016-10-14 | HP ---
Unit #: [id number] #: [id number] Patient: SUNNY MENA, [id number] [address] [place], [place] [address] [id number] I MR#: [id number] NAME: SUNNY MENA ROOM: [facility] Age: 66 Sex: M Admission Date: 10/14/2016 : 1950 Attending Physician: Ángela Batista M.D. Primary Care Physician: No Primary Care Physician HISTORY AND PHYSICAL CHIEF COMPLAINT Accidental overdose with aspiration pneumonia and respiratory failure. HISTORY This 66-year-old male with migraine headaches, BPH, hyperlipidemia is admitted after an overdose. The patient wears a fentanyl patch 100 mcg which he changes every four days. He filled a bottle of hydrocodone 10/325 three days ago. Today he was sleeping in bed at 1:30 in the afternoon and was very somnolent. His rechecked on him several times but he remained excessively somnolent. She then counted his hydrocodone and realized that he took 25 extra pills over the past three days since he last had them filled. She called EMS who found the patient unarousable. They gave the patient IV Narcan with minimal improvement. They intubated the patient en route. The patient then experienced excessive vomiting, and aspirated despite the ET-tube being in place. He was brought to this emergency department where he had food particles in the ET-tube. He was suctioned out and re-intubated by the ER physician. He was quite hypoxic initially, but his O2 sats are now improving following suction. Chest x-ray is most consistent with bilateral aspiration pneumonia. He did require a decent amount of PEEP to oxygenate him, but he is only requiring 5 of PEEP currently. He is, however, becoming hypotensive. PAST MEDICAL HISTORY 1. Migraine headaches and chronic headaches. 2. BPH. 3. GERD. 4. Hyperlipidemia. 5. Anxiety and depression. 6. What sounds to be some sort of chronic lymphocytic leukemia. 7. Admission to [place] five years ago for an accidental overdose. ALLERGIES No known drug allergies. HOME MEDICATIONS 1. Zomig p.r.n. migraines. 2. Patient also takes p.r.n. aspirin. 3. Hydrocodone 10/325. 4. Xanax 0.5 mg q.i.d. 5. Prilosec 40 mg daily. 6. Flomax 0.4 mg daily. 7. Wellbutrin 150 mg daily. Unit #: [id number] #: [id number] Patient: SUNNY MENA JR 8. Proscar 5 mg daily. 9. Lipitor 40 mg daily. 10. Zoloft 100 mg daily. FAMILY HISTORY CAD and pancreatic cancer. SOCIAL HISTORY The patient lives with his . He was smoking up to two packs per day of tobacco until two years ago when he switched over to an e-cigarette. Does not drink alcohol or use street drugs. REVIEW OF SYSTEMS Impossible to obtain as patient is currently sedated on a ventilator and intubated. PHYSICAL GENERAL: Ill-appearing 66-year-old, intubated male, who is currently sedated, on the ventilator. VITAL SIGNS: Temperature 97.9, initial heart rate 112, respirations 16, blood pressure 116/73 although patient did become hypotensive at 66/34 in the ER, currently is being started on Levophed. O2 saturation is 93% on FIO2 100%, 5 of PEEP. HEENT: Pupils are pinpoint. Pharynx - patient is orally intubated. NECK: Supple. CHEST: Fairly clear. CARDIAC: Normal S1 and S2 without definite murmur. ABDOMEN: Bowel sounds are diminished. Nontender. No hepatosplenomegaly or masses. EXTREMITIES: Mild pedal edema. Pedal pulses are diminished. There is a splinter hemorrhage over the left thumbnail bed. NEUROLOGIC EXAM: Patient is somnolent on the ventilator. Does have a small amount of Diprivan going as he did become more awake, moving his limbs and was biting the ET-tube. His pupils are pinpoint, positive corneals. DIAGNOSTIC STUDIES LABORATORY: Admission labs - hematocrit is 46.2, normal white count and platelet count. Normal coags. SMA-12 - creatinine 2.7. No previous baseline. AST is 82. Lactic acid is 7. Initial ABG - pH 7.12, pCO2 90.6, pO2 77.5, O2 saturation 90.5% on tidal volume 600, PEEP of 15, AC 16, FIO2 100%. Repeat ABG - pH 7.15, pCO2 76.6, pO2 74.1, O2 saturation 90.7% on tidal volume 700, PEEP of 5, AC of 20, FIO2 of 100%. IMAGING: Head CT - minimal small vessel ischemic disease. Chest x-ray looks to be most consistent with bilateral aspiration. ET-tube is in good position. NG-tube is in the stomach. CARDIOVASCULAR: EKG - sinus tachycardia, rate 110 with one PVC noted. Nonspecific ST wave abnormalities noted inferiorly. Initial troponin is borderline at 0.33. Unit #: [id number] #: [id number] Patient: SUNNY MENA JR ASSESSMENT 1. Accidental overdose. Patient normally wears a fentanyl patch and took extra [place]. 2. Acute hypoxic/hypercapnic respiratory failure secondary to overdose and to aspiration. 3. Aspiration pneumonia but patient is septic with this. 4. Acute kidney injury. 5. Indeterminate troponin. 6. Migraine headaches and chronic headaches. 7. BPH. 8. GERD. 9. Anxiety and depression. 10. Chronic leukemia, what sounds to be chronic lymphocytic leukemia. PLANS 1. Zosyn pending sputum and blood cultures. Will order albuterol and recheck ABG on current vent settings. Will ask pulmonary to see in the morning. 2. IV fluids with a small amount of bicarb, and pressors. 3. Gentle sedation and wrist restraints. 4. Urine tox screen. 5. Pulmonary consultation. 6. DVT and gastritis prophylaxis. 7. Recheck labs in the morning. If not improving, will check a renal ultrasound. 8. Old records from [facility]. 9. Repeat cardiac enzymes, start aspirin, obtain echo. 10. Further workup and consultants depending on above. Critical care time spent in evaluating this patient was 40 minutes. Dictated by Ángela Batista M.D. AML/df TD: 10/15/2016 05:29 JOB #: [id number] CC: Ricardo Shelley M.D. HISTORY AND PHYSICAL Page 1 of 1 X Ángela Batista MD HISTORY AND PHYSICAL
--- NOTE | ~2016-10-14 | CT71 ---
[facility] A Service [facility] RADIOLOGY TEXT RESULTS PATIENT: SUNNY MENA JR LOCATION: [place] [address] : [birth year] UNIT #: [id number] AGE: [address]: Jaleesa Yan MD SEX: M ORDER DR: [id number] [facility] [address] [facility]. [place], [place] [address] [id number] I MR#: [id number] Acc #: [id number] NAME: SUNNY MENA JR : 1950 SEX: M STUDY DATE/TIME: 10/14/2016 21:47 UNIT: [facility] ROOM: [facility] STUDY DESCRIPTION: CT Head Wo Contrast Attending Physician: Jaleesa Yan M.D. Ordering Physician: Joseph Smyth M.D. Primary Care Physician: Primary Care Physician No MEDICAL IMAGING REPORT This report is preliminary unless electronic signature is present EXAM CT brain without contrast HISTORY Unresponsive today. Incoherent. Pulmonary arrest. FINDINGS This CT examination was performed with one or more of the following radiation dose reduction techniques: automatic exposure control, adjustment of mA and/or kV according to patient size, and iterative reconstruction. CT brain without contrast demonstrates no intracranial hemorrhage, mass or edema. No midline shift or ventricular dilatation or extraaxial fluid collection. Minimal chronic ischemic changes in the periventricular white matter bilaterally. No focal atrophy or extraaxial fluid collection. Mucosal thickening in the partly visualized inferior left maxillary sinus. Mild mucosal thickening in ethmoid air cells bilaterally. IMPRESSION No acute findings. Minimal chronic ischemic changes in the deep white matter bilaterally. Dictated by... Greg Menchaca M.D. THIS IS AN ELECTRONICALLY VERIFIED REPORT Greg Menchaca M.D. at 10/16/2016 4:12 AM ALEXIS/jacek TD: 10/15/2016 08:30 JOB #: [id number] [facility] A Service [facility] RADIOLOGY TEXT RESULTS PATIENT: SUNNY MENA JR LOCATION: [address] : [birth year] UNIT #: [id number] AGE: [address]: Jaleesa Yan MD SEX: M ORDER DR: MEDICAL IMAGING REPORT Page 1 of 1 COPY
--- NOTE | ~2016-10-14 | CR72 ---
[facility] A Service of [facility] & [facility] RADIOLOGY TEXT RESULTS PATIENT: SUNNY MENA JR LOCATION: [place] [id number] : [birth year] UNIT #: [id number] AGE: [address]: Jaleesa Yan MD SEX: M ORDER DR: [id number] [facility] [address] [facility]. [place], [place] [address] [id number] I MR#: [id number] Acc #: [id number] NAME: SUNNY MENA JR : 1950 SEX: M STUDY DATE/TIME: 10/15/2016 4:17 UNIT: [facility] ROOM: [facility] STUDY DESCRIPTION: CR Chest Single View Portable Attending Physician: Jaleesa Yan M.D. Ordering Physician: Ángela Batista M.D. Primary Care Physician: Primary Care Physician No MEDICAL IMAGING REPORT This report is preliminary unless electronic signature is present EXAM Portable chest HISTORY Respiratory failure for 1 day. FINDINGS Moderately extensive interstitial infiltrates in the lungs bilaterally primarily in the lower lungs with more focal dense consolidation or atelectasis in the left base with interval progression of these findings compared to yesterday. The cardiac and mediastinal contours are normal. Support devices are unchanged in position. Dictated by... Greg Menchaca M.D. THIS IS AN ELECTRONICALLY VERIFIED REPORT Greg Menchaca M.D. at 10/16/2016 4:18 AM RANDL/jacek TD: 10/15/2016 09:19 JOB #: [id number] MEDICAL IMAGING REPORT Page 1 of 1 COPY
--- NOTE | ~2016-10-14 | EKG ---
PATIENT: SUNNY MENA UNIT #: [id number] Ventricular Rate: 100 BPM Atrial Rate: 100 BPM P-R Interval: 142 ms QRS Duration: 104 ms Q-T Interval: 328 ms QTC Calculation(Bezet): 423 ms P Herminie: 76 degrees Calculated R [place]in[place]: 15 degrees Calculated T Hermin[place]: 22 degrees Diagnosis Line: Normal sinus rhythm Diagnosis Line: Nonspecific T wave abnormality Diagnosis Line: Abnormal ECG Diagnosis Line: When compared with ECG of 14-OCT-2016 19:28, Diagnosis Line: Premature ventricular complexes are no longer Diagnosis Line: Present Diagnosis Line: QRS duration has decreased Diagnosis Line: Criteria for Inferior infarct are no longer Diagnosis Line: Present Diagnosis Line: T wave inversion no longer evident in Inferior Diagnosis Line: leads Diagnosis Line: Nonspecific T wave abnormality now evident in Diagnosis Line: Anterior leads Diagnosis Line: Confirmed by ALESSANDRA CUADRA MD ([id number]) on 10/16/2016 Diagnosis Line: 7:12:46 PM INTERPRETING MD: KHALIF CASAS
--- NOTE | ~2016-10-14 | CR7 ---
[facility] A Service of [facility] RADIOLOGY TEXT RESULTS PATIENT: SUNNY MENA JR LOCATION: [place] [id number] : [birth year] UNIT #: [id number] AGE: [address]: Jaleesa Yan MD SEX: M ORDER DR: [id number] [place] [address] [place], [place] [address] [id number] I MR#: [id number] Acc #: [id number] NAME: SUNNY MENA : 1950 SEX: M STUDY DATE/TIME: 10/18/2016 UNIT: [facility] ROOM: [facility] STUDY DESCRIPTION: CR Abdomen Single AP View Attending Physician: Jaleesa Yan M.D. Ordering Physician: Mohan Hardy M.D. Primary Care Physician: No Primary Care Physician MEDICAL IMAGING REPORT This report is preliminary unless electronic signature is present EXAM Abdomen 1 view, 10/18/2016 at 1402 hours. HISTORY 66-year-old man for evaluation of new onset abdominal distension and pain today. COMPARISON 10/16/2016 FINDINGS Supine views of the abdomen and pelvis are performed. There is a nasogastric tube present with tip at the gastric antrum or proximal duodenum slightly more proximal than on 10/16/2016. There is no distension of the stomach, small bowel or colon. No suspicious calcifications. IMPRESSION 1. Tip of the nasogastric tube is directed rightward in the right abdomen, likely at the distal antrum or duodenum. This is slightly more proximal in position than on 10/16/2016. 2. No evidence of bowel distension or bowel wall thickening. No suspicious calcifications. Dictated by... Nayeli Langston M.D. THIS IS AN ELECTRONICALLY VERIFIED REPORT Nayeli Langston M.D. at 10/18/2016 6:15 PM Panda [facility] A Service of [facility] RADIOLOGY TEXT RESULTS PATIENT: SUNNY MENA JR LOCATION: [facility]17 : [birth year] UNIT #: [id number] AGE: [address]: Jaleesa Yan MD SEX: M ORDER DR: TD: 10/18/2016 18:07 JOB #: [id number] MEDICAL IMAGING REPORT Page 1 of 1 COPY
--- NOTE | ~2016-10-14 | CR72 ---
[facility] A Service of [facility] RADIOLOGY TEXT RESULTS PATIENT: SUNNY MENA JR LOCATION: [facility] : [birth year] UNIT #: [id number] AGE: [address]: Jaleesa Yan MD SEX: M ORDER DR: [id number] [place] [id number] [place], [place] [address] [id number] I MR#: [id number] Acc #: [id number] NAME: SUNNY MENA JR : 1950 SEX: M STUDY DATE/TIME: 10/24/2016 6:03 UNIT: [address] ROOM: [facility] STUDY DESCRIPTION: CR Chest Single View Portable Attending Physician: Jaleesa Yan M.D. Ordering Physician: Mohan Hardy M.D. Primary Care Physician: No Primary Care Physician MEDICAL IMAGING REPORT This report is preliminary unless electronic signature is present EXAM Portable chest, 10/24/16 COMPARISON STUDIES 10/23/16 HISTORY Drug overdose 10 days ago with respiratory failure FINDINGS A portable view of the chest is obtained. The heart size and vascularity are normal. Mild interstitial prominence is present and stable. The bones are normal. IMPRESSION There continues to be mild interstitial prominence in the lungs without focal infiltrates. The heart size is normal in appearance, and the PIC catheter is in good position. Dictated by... Giorgio Muñoz M.D. THIS IS AN ELECTRONICALLY VERIFIED REPORT Giorgio Muñoz M.D. at 10/25/2016 1:58 PM BECKY/eric TD: 10/25/2016 04:08 JOB #: [id number] MEDICAL IMAGING REPORT [facility] A Service of [facility] RADIOLOGY TEXT RESULTS PATIENT: SUNNY MENA JR LOCATION: [facility] : [birth year] UNIT #: [id number] AGE: [address]: Jaleesa Yan MD SEX: M ORDER DR: Page 1 of 1 COPY
--- NOTE | ~2016-10-14 | CR7 ---
[facility] A Service of [facility] & [facility] RADIOLOGY TEXT RESULTS PATIENT: SNUNY MENA JR LOCATION: [facility] 340- : [birth year] UNIT #: [id number] AGE: [address]: Jaleesa Yan MD SEX: M ORDER DR: [id number] [place] [id number] [place], [place] [address] [id number] I MR#: [id number] Acc #: [id number] NAME: SUNNY MENA JR : 1950 SEX: M STUDY DATE/TIME: 10/23/2016 4:28 UNIT: [facility] ROOM: [facility] STUDY DESCRIPTION: CR Abdomen Single AP View Attending Physician: Jaleesa Yan M.D. Ordering Physician: Teddy Yadav M.D. Primary Care Physician: Primary Care Physician No MEDICAL IMAGING REPORT This report is preliminary unless electronic signature is present EXAM Abdominal radiograph INDICATIONS Generalized abdominal pain today. PROCEDURE 2 supine views of the abdomen COMPARISON 10/18/2016 FINDINGS Nonobstructed bowel gas pattern. Scattered gas throughout the small and large bowel. IMPRESSION Nonobstructed pattern Dictated by... Javid Steele M.D. THIS IS AN ELECTRONICALLY VERIFIED REPORT Javid Steele M.D. at 10/24/2016 9:56 PM ALFREDO/richi TD: 10/23/2016 12:43 JOB #: [id number] MEDICAL IMAGING REPORT Page 1 of 1 COPY
--- NOTE | ~2016-10-14 | EKG ---
PATIENT: SUNNY MENA UNIT #: [id number] Ventricular Rate: 88 BPM Atrial Rate: 88 BPM P-R Interval: 144 ms QRS Duration: 108 ms Q-T Interval: 410 ms QTC Calculation(Bezet): 496 ms P Mingus: 71 degrees Calculated R Ming[place]: 23 degrees Calculated T Mingus: 18 degrees Diagnosis Line: Normal sinus rhythm Diagnosis Line: Prolonged QT Diagnosis Line: Abnormal ECG Diagnosis Line: When compared with ECG of 15-OCT-2016 07:57, Diagnosis Line: (unconfirmed) Diagnosis Line: Nonspecific T wave abnormality no longer evident Diagnosis Line: in Anterior leads Diagnosis Line: QT has lengthened Diagnosis Line: Confirmed by ALESSANDRA CUADRA MD ([id number]) on 10/16/2016 Diagnosis Line: 7:21:29 PM INTERPRETING MD: KHALIF CASAS
--- NOTE | ~2016-10-14 | EKG ---
PATIENT: SUNNY MENA UNIT #: [id number] Ventricular Rate: 110 BPM Atrial Rate: 110 BPM P-R Interval: 132 ms QRS Duration: 132 ms Q-T Interval: 438 ms QTC Calculation(Bezet): 592 ms P Hampton: 75 degrees Calculated R [place]: 58 degrees Calculated T [place]: 13 degrees Diagnosis Line: Sinus tachycardia with occasional Premature Diagnosis Line: ventricular complexes Diagnosis Line: Non-specific intra-ventricular conduction block Diagnosis Line: Abnormal ECG Diagnosis Line: Diagnosis Line: Confirmed by ALESSANDRA CUADRA MD ([id number]) on 10/14/2016 Diagnosis Line: 8:07:26 PM INTERPRETING MD: KHALIF CASAS
--- NOTE | ~2016-10-14 | FU ---
[facility] Nutrition Therapy DATE: 10/25/16 Patient: SUNNY MENA JR Physician: ROOSEVELT Address: [address] Room/Bed: [address] [place] [address], Zip: [place] [address] Admit Date: 10/14/16 Date of : 54 Height: 5 10.5 Weight: 179 81.2 NUTRITION MONITORING/FOLLOW-UP: Reason: PT SEEN FOR FOLLOW-UP DX: OD, RESPIRATION PNA Anthropometrics: 5'10.5", 180# (82 KG), BMI: 25.5 -ADMIT WEIGHT: 194# Labs: GLU: 136, K+:3.4 Meds: MIRALAX, ZOFRAN, FUROSEMIDE, KCL, PROTONIX, NACL, ZOSYN I&O's: 4289/2085, 1 BM NOTED Skin: REVIEWED. NO KNOWN SKIN ISSUES Assessment: CHART REVIEWED AND EVENTS NOTED. PT SEEN FOR FOLLOW-UP. PT AWAKE AT TIME OF VISIT REPORTING APPETITE IMPROVING, NOTING NO C/O N/V/D. PT NOTES CONSUMING ~50% OF BREAKFAST AND ~50% LUNCH TODAY. THIS RD ENCOURAGED ADEQUATE KCAL, PROTEIN AND FLUID INTAKE, PT AGREED TO ENSURE SHAKES BID. PT REPORTED NO DIET QUESTIONS AT THIS TIME. PLANS IN PLACE FOR PT TO D/C TO REHAB THIS WEEKEND. RD TO REMAIN AVAILABLE. Dx: INADEQUATE ORAL INTAKE R/T AWAITING FIELD ARTILLERY RADAR OPERATOR EVAL AEB NPO, NEED FOR FIELD ARTILLERY RADAR OPERATOR, EN OFF.-RESOLVED Intervention: DECREASED PROTEIN-ENERGY INTAKE R/T CURRENT CLINICAL CONDITION AEB PT REPORT ABOVE. Monitoring, Evaluation and Goals: 1. TOLERANCE OF ORAL DIET ADVANCEMENT VS. EN TO MEET ESTIMATED NUTRITIONAL NEEDS-MET 2. LABS; WNL-IN PROGRESS (SEE LABS ABOVE) 3. NORMALIZE GI FUNCTION-IN PROGRESS MONITOR: PER PROTOCOL, CRITERIA TO DETERMINE IF GOALS ABOVE ARE MET Recommendations: 1. PLEASE ORDER KRISTEN ENSURE SHAKES BID W/MEALS FOR ADDITIONAL PROTEIN AND KCAL 2. CONTINUE CURRENT DIET ORDER ABOVE TO BETTER FACILITATE PO INTAKE 3. APPRECIATE FAMILY AND STAFF TO CONTINUE TO ENCOURAGE ADEQUATE PO INTAKE RD WILL F/U PER PROTOCOL PT IS MILDLY COMPROMISED [facility] Nutrition Therapy DATE: 10/25/16 Patient: SUNNY MENA JR Physician: ROOSEVELT Address: [address] Room/Bed: [facility], Zip: [place] [address] Admit Date: 10/14/16 Date of : [birth year] Height: 5 10.5 Weight: 179 81.2 Respectfully, Camila Hayes RD, LD Food and Nutritional Services [facility] cc: client file
--- NOTE | ~2016-10-14 | CR72 ---
[facility] A Service of [facility] & [facility] RADIOLOGY TEXT RESULTS PATIENT: SUNNY MENA JR LOCATION: [place] [id number] : [birth year] UNIT #: [id number] AGE: [address]: Jaleesa Yan MD SEX: M ORDER DR: [id number] [facility] [address] [facility]. [place], [place] [address] [id number] I MR#: [id number] Acc #: [id number] NAME: SUNNY MENA JR : 1950 SEX: M STUDY DATE/TIME: 10/16/2016 4:47 UNIT: [facility] ROOM: [facility] STUDY DESCRIPTION: CR Chest Single View Portable Attending Physician: Jaleesa Yan M.D. Ordering Physician: Mohan Hardy M.D. Primary Care Physician: Primary Care Physician No MEDICAL IMAGING REPORT This report is preliminary unless electronic signature is present EXAM Portable chest HISTORY Respiratory failure and pneumonia for 2 days. FINDINGS Right arm approach PICC has been placed since yesterday and extends to the low SVC terminating 1 cm above the junction SVC and right atrium. Remainder of the chest is stable including moderately extensive bilateral interstitial infiltrates, primarily in the lower lungs and consolidation or atelectasis in the retrocardiac left lower lobe and minimal left pleural effusion. Dictated by... Greg Menchaca M.D. THIS IS AN ELECTRONICALLY VERIFIED REPORT Greg Menchaca M.D. at 10/16/2016 10:07 PM ALEXIS/brandee TD: 10/16/2016 08:10 JOB #: [id number] MEDICAL IMAGING REPORT Page 1 of 1 COPY
--- NOTE | ~2016-10-14 | CO ---
Unit #: [id number] #: [id number] Patient: SUNNY MENA JR [id number] [address] [address] [id number] I MR#: [id number] NAME: SUNNY MENA JR ROOM: [facility] Age: 66 Sex: M Admission Date: 10/14/2016 : 1950 Attending Physician: Jaleesa Yan M.D. Primary Care Physician: No Primary Care Physician CONSULTATION REPORT This is a 66-year-old gentleman with a history of acute renal insufficiency, hypertension, hyperlipidemia, history of COPD, history of DVT several years ago, chronic back pain, migraine headaches, presented with shortness of breath, altered mental status, respiratory failure after taking too many Norcos at home. Patient became progressively hypoxic in the emergency room, required intubated. The patient had hypoxic and hypercapnic respiratory failure and also, due to chronic aspiration while he was poorly responsive. We have been asked to see for vent management. PAST MEDICAL HISTORY Significant for: 1. Migraine headaches. 2. Chronic headaches. 3. BPH. 4. GERD. 5. Hyperlipidemia. 6. Anxiety/depression. 7. Patient has a history of chronic lymphocytic leukemia. 8. Patient has a history of a prior admission for accidental overdose. ALLERGIES Patient has no known medical allergies. MEDICATIONS Home medications include: 1. Zomig 4 mg p.r.n. headaches. 2. Aspirin 81 mg p.r.n. pain. 3. Hydrocodone 10/325 four times a day as needed. 4. Xanax 0.5 mg, three to four times a day as needed. 5. Prilosec 40 mg daily. 6. Flomax 0.4 mg daily. 7. Wellbutrin 150 mg daily. 8. Proscar 5 mg daily. 9. Lipitor 40 mg daily. 10. Zoloft 100 mg daily. FAMILY HISTORY Significant for coronary artery disease and pancreatic cancer. SOCIAL HISTORY The patient lives with his . He was smoking two packs a day until about two years ago when he switched over to e-cigarettes. No history of alcohol, no history of polysubstance abuse. Unit #: [id number] #: [id number] Patient: SUNNY MENA JR REVIEW OF SYSTEMS Impossible to obtain as patient continues to be sedated on the ventilator. PHYSICAL EXAMINATION VITAL SIGNS: T-current 99.2, pulse 92, respiratory rate 22, blood pressure 136/61 on 0.2 of Levophed, sat'ing 96% on 100% FIO2, tidal volume 600, respiratory rate 24. HEENT: Pupils equal, round, reactive to light. Extraocular movements are intact. Patient is oropharyngeally intubated. NECK: Large and greater than 17 cm. CHEST: Decreased breath sounds bilaterally. CARDIOVASCULAR EXAM: Regular rate. Gallop. ABDOMEN: Soft, nontender, nondistended. EXTREMITIES: No evidence of edema. DIAGNOSTIC STUDIES LABORATORY: BUN and creatinine 29/2.1, glucose of 145. ASSESSMENT AND PLAN 1. Acute respiratory failure. 2. Drug overdose. 3. Aspiration pneumonia. 4. Troponin elevation. 5. LILIYA. 6. Likely septic shock, patient on Levophed. Plan is to continue Symbicort, wean pressors, continue Zosyn. Once patient is off the pressors, may be easier to wean him off. Patient does have a risk of getting fluid overloaded so, therefore, will need to do a T-piece before extubating patient. Thank you very much for this consult and allowing us to participate in the care of this patient. Dictated by... Mohan Hardy M.D. FLOR/lori TD: 10/17/2016 12:59 JOB #: [id number] CONSULTATION REPORT Page 1 of 1 X Eulalio Hardy MD X CONSULTATION REPORT
--- NOTE | ~2016-10-14 | CO ---
Unit #: [id number] #: [id number] Patient: SUNNY BAHENA JR [id number] [address] [place], [place] [address] [id number] MR#: [id number] NAME: SUNNY BAHENA JR ROOM: [facility] Age: 66 Sex: M Admission Date: 10/14/2016 : 1950 Attending Physician: Jaleesa Yan M.D. Primary Care Physician: Primary Care Physician No Consultation Date: 10/20/2016 CONSULTATION REPORT REASON FOR CONSULTATION Upper GI bleed. HISTORY OF PRESENT ILLNESS Mr. Bahena is a 66-year-old white gentleman. The patient normally wears a fentanyl patch for migrainous headaches. He apparently took a bottle of hydrocodone 3 days ago while he was somnolent and took a whole bunch of 25 pills over a very short period of time. The patient subsequently had respiratory depression and was admitted to via the EMS after being intubated. Upon admission, he was found to have elevated troponin level and possible rhabdomyolysis with elevated CK. He has also had coffee-grounds emesis and drop in his hemoglobin. PAST MEDICAL HISTORY Significant for history of migrainous headaches, benign prostate hypertrophy, GERD, anxiety, depression, and lymphocytic leukemia. He has had no prior surgeries. MEDICATIONS At home included Zomig, hydrocodone, Xanax, Prilosec, Flomax, Wellbutrin, and aspirin, as well as Proscar, Lipitor, Zoloft. ALLERGIES He has no known drug allergies. FAMILY HISTORY Coronary artery disease and pancreatic cancer. SOCIAL HISTORY Lives at home with his . He is smoking couple of packs cigarette a day and does not drink alcohol or use any recreational drugs. REVIEW OF SYSTEMS Not possible as the patient is on ventilator and intubated. PHYSICAL EXAMINATION GENERAL: He appears to be responding to verbal commands. VITAL SIGNS: Indicate a temperature of 99.8, his pulse is 77 per minute and regular, respiratory rate is 18, blood pressure is 107/55, it is very as low as 74/40. HEENT: He has no pallor, icterus, lymphadenopathy, or peripheral edema. CARDIOVASCULAR: Normal heart sounds. No murmurs. LUNGS: Auscultation over the lungs reveals bilateral symmetric air entry. ABDOMEN: Soft, obese, and nontender. Liver and spleen are not palpable. Unit #: [id number] #: [id number] Patient: SUNNY BAHENA JR Bowel sounds normal. DIAGNOSTIC STUDIES LABORATORY RESULTS: Shows a hemoglobin of 14.6 on admission and dropped to 10, and now it is back to 11.8. His white count was elevated to 18,000, which is now better and platelet count is 194. Serum chemistry shows a BUN and creatinine of 25 and 0.8. Albumin is 2.3. AST, ALT, and alkaline phosphatase are 123, 49, and 69. The patient's CK total of 6000. Lactic acid was 5.9. CLINICAL IMPRESSION It is not clear whether the patient has had any substantial upper gastrointestinal bleed. In any event, a diagnostic endoscopy is warranted at the same time. A Dobbhoff tube will be placed for feeding as the patient is likely to need ventilation for the next couple of days. The patient also has acute kidney injury and rhabdomyolysis, accidental overdose, hypoxemic respiratory failure, and respiratory depression. An upper endoscopy done later today. Thank you for asking me to see this gentleman. I appreciate the consult. Dictated by... Brandon Mesa/laura TD: 10/23/2016 14:55 JOB #: [id number] CC: Jaleesa Yan M.D. CONSULTATION REPORT Page 1 of 1 X Teddy Yadav MD X CONSULTATION REPORT
[2016-10-14 19:53] LABS: BASOPHIL% 0.2 % (0-2.5); DIFF IND NO; HEMATOCRIT 46.2 % (38.0-50.0); HEMOGLOBIN 14.6 gm/dL (13.0-16.0); LYMPHOCYTE# 2.6 X10e3 (1.0-3.5); LYMPHOCYTE% 33.1 % (17.0-45.0); MEAN CELL VOLUME 95.7 FL (83-96); MEAN CORPUSCULAR HEMOGLOBIN 30.2 PG (28-34); MEAN CORPUSCULAR HGB CONC 31.6 g/dL (30-36); MEAN PLATELET VOLUME 8.7 FL (6.5-11.5); MONOCYTE# 0.2 X10e3 (0-1.0); MONOCYTE% 2.5 % (3.0-12.0); NEUTROPHIL# 5.1 X10e3 (1.5-7.1); NEUTROPHIL% 64.2 % (40-75); PLATELET COUNT 242 X10e3 (140-420); RED BLOOD COUNT 4.83 X10e (3.90-5.60); RED CELL DISTRIBUTION WIDTH 15.8 % (11.0-15.5); WHITE BLOOD COUNT 7.9 X10e3 (4.0-10.5)
[2016-10-14 19:54] LABS: ARTERIAL BLD GAS O2 SATURATION 90.5 % (90.0-100.0); ARTERIAL BLOOD GAS CARBOXY HB 0.7 %sat (0.0-9.0); ARTERIAL BLOOD GAS HCO3 29.5 mmol/L; ARTERIAL BLOOD GAS MET HB 0.6 %sat (0.0-2.0)
[2016-10-14 19:55] LABS: ARTERIAL BLOOD GAS ART SITE LEFT FEMORAL; ARTERIAL BLOOD GAS DELIVERY AC; ARTERIAL BLOOD GAS PCO2 90.6 mmHg (35.0-45.0); ARTERIAL BLOOD GAS PO2 77.5 mmHg (80.0-100); ARTERIAL BLOOD GAS VENT MODE AC; ARTERIAL BLOOD GAS pH 7.121 (7.350-7.450); ARTERIAL DRAW? YES
[2016-10-14 20:05] LABS: INR 1.1
[2016-10-14 20:22] LABS: CALCIUM SERUM 9.7 mg/dL (8.4-10.2); POTASSIUM 3.9 mmol/L (3.5-5.1)
[2016-10-14 20:23] LABS: URINE SOURCE CLEAN CATCH
[2016-10-14 20:30] LABS: URINE APPEARANCE CLOUDY; URINE BILIRUBIN NEG (NEG); URINE BLOOD 3+ (NEG); URINE COLOR YELLOW; URINE GLUCOSE NEG (NEG); URINE KETONE NEG (NEG); URINE LEUKOCYTE ESTERASE NEG (NEG); URINE NITRATE NEG (NEG); URINE PROTEIN 1+ (NEG); URINE SPECIFIC GRAVITY 1.019 (1.003-1.035); URINE UROBILINOGEN 0.2 MG/DL (NEG)
[2016-10-14 20:32] LABS: URINE BACTERIA AUWI NEG (NEGATIVE); URINE SQUAMOUS EPITHELIAL CELL NONE SEEN /[HPF]; UWBCS1 AUWI 0-2 (0-5)
[2016-10-14 20:34] LABS: ALBUMIN SERUM 3.8 g/dL (3.5-5.0); BILIRUBIN, DIRECT 0.1 mg/dL (0.0-0.2); BILIRUBIN,INDIRECT 0.4 mg/dL (0.0-0.9); BILIRUBIN,TOTAL 0.5 mg/dL (0.2-2.0); BUN/CREATININE RATIO 7.4; CREATININE SERUM 2.7 mg/dL (0.6-1.4); GLOM FILT RATE Estimated 23.8 mL/min (>60); PROTEIN TOTAL SERUM 7.1 g/dL (6.0-8.3)
[2016-10-14 20:38] LABS: CULTURE INDICATED? NO
[2016-10-14 20:39] LABS: URINE MUCUS PRESENT
[2016-10-14 20:54] LABS: POC - CKMB 59.9 ng/mL (0.0-7.9); POC - TROPONIN 0.33 ng/mL (<=0.05)
[2016-10-14 21:07] LABS: ARTERIAL BLD GAS O2 SATURATION 90.7 % (90.0-100.0); ARTERIAL BLOOD GAS CARBOXY HB 0.7 %sat (0.0-9.0); ARTERIAL BLOOD GAS HCO3 26.7 mmol/L; ARTERIAL BLOOD GAS MET HB 0.7 %sat (0.0-2.0)
[2016-10-14 21:08] LABS: ARTERIAL BLOOD GAS ALLEN TEST NORMAL; ARTERIAL BLOOD GAS ART SITE RIGHT RADIAL; ARTERIAL BLOOD GAS DELIVERY VENT; ARTERIAL BLOOD GAS PCO2 76.6 mmHg (35.0-45.0); ARTERIAL BLOOD GAS PO2 74.1 mmHg (80.0-100); ARTERIAL BLOOD GAS VENT MODE AC; ARTERIAL BLOOD GAS pH 7.152 (7.350-7.450); ARTERIAL DRAW? YES
[2016-10-14 23:48] LABS: BENZODIAZEPINES POS (NEG); OPIATES POS (NEG); U METHADONE NEG (NEG)
[2016-10-14 23:49] LABS: AMPHETAMINE NEG (NEG); BARBITURATES NEG (NEG); COCAINE NEG (NEG); MARIJUANA NEG (NEG); TRICYCLIC ANTIDEPRESSANTS POS (NEG)
[2016-10-15] LABS: ARTERIAL BLOOD GAS ALLEN TEST NORMAL; ARTERIAL BLOOD GAS ART SITE RIGHT RADIAL; ARTERIAL BLOOD GAS CARBOXY HB 0.4 %sat (0.0-9.0); ARTERIAL BLOOD GAS DELIVERY VENT; ARTERIAL BLOOD GAS MET HB 0.7 %sat (0.0-2.0); ARTERIAL BLOOD GAS PCO2 56.6 mmHg (35.0-45.0); ARTERIAL BLOOD GAS PO2 80.8 mmHg (80.0-100); ARTERIAL BLOOD GAS VENT MODE AC; ARTERIAL BLOOD GAS pH 7.253 (7.350-7.450); ARTERIAL DRAW? YES
[2016-10-15 02:08] LABS: ARTERIAL BLD GAS O2 SATURATION 96.3 % (90.0-100.0); ARTERIAL BLOOD GAS CARBOXY HB 0.3 %sat (0.0-9.0); ARTERIAL BLOOD GAS HCO3 24.2 mmol/L; ARTERIAL BLOOD GAS MET HB 0.8 %sat (0.0-2.0); ARTERIAL BLOOD GAS pH 7.287 (7.350-7.450)
[2016-10-15 02:21] LABS: ARTERIAL BLOOD GAS ALLEN TEST NORMAL; ARTERIAL BLOOD GAS ART SITE RIGHT RADIAL; ARTERIAL BLOOD GAS DELIVERY VENT; ARTERIAL BLOOD GAS PCO2 50.6 mmHg (35.0-45.0); ARTERIAL BLOOD GAS VENT MODE AC; ARTERIAL DRAW? YES
[2016-10-15 03:11] LABS: INR 1.1; PARTIAL THROMBOPLASTIN TIME 26.5 SECONDS (23.5-31.3); PROTHROMBIN TIME (PATIENT) 12.4 SECONDS (10.0-11.7)
[2016-10-15 03:20] LABS: BASOPHIL% 0.3 % (0-2.5); EOSINOPHIL% 0.1 % (0.0-7.0); HEMATOCRIT 41.3 % (38.0-50.0); LYMPHOCYTE# 1.7 X10e3 (1.0-3.5); LYMPHOCYTE% 35.5 % (17.0-45.0); MEAN CELL VOLUME 96.8 FL (83-96); MEAN CORPUSCULAR HEMOGLOBIN 30.6 PG (28-34); MEAN CORPUSCULAR HGB CONC 31.6 g/dL (30-36); MEAN PLATELET VOLUME 9.5 FL (6.5-11.5); MONOCYTE# 0.2 X10e3 (0-1.0); MONOCYTE% 3.4 % (3.0-12.0); NEUTROPHIL# 2.9 X10e3 (1.5-7.1); NEUTROPHIL% 60.7 % (40-75); PLATELET COUNT 162 X10e3 (140-420); RED BLOOD COUNT 4.26 X10e (3.90-5.60); RED CELL DISTRIBUTION WIDTH 16.3 % (11.0-15.5); WHITE BLOOD COUNT 4.8 X10e3 (4.0-10.5)
[2016-10-15 03:23] LABS: DIFF IND NO
[2016-10-15 11:05] LABS: CHOLESTEROL 118 mg/dL (0-200)
[2016-10-15 11:06] LABS: HDL CHOLESTEROL 35 mg/dL (29-75); LDL CHOLESTEROL 16 mg/dL (-130); LDL/HDL RATIO 0 RATIO (0-4); TRIGLYCERIDES 335 mg/dL (10-160)
[2016-10-15 11:47] LABS: ALBUMIN SERUM 2.8 g/dL (3.5-5.0); BILIRUBIN,TOTAL 0.7 mg/dL (0.2-2.0); BUN/CREATININE RATIO 13.8; CALCIUM SERUM 7.8 mg/dL (8.4-10.2); CREATININE SERUM 2.1 mg/dL (0.6-1.4); GLOM FILT RATE Estimated 32.3 mL/min (>60); POTASSIUM 3.9 mmol/L (3.5-5.1); PROTEIN TOTAL SERUM 5.3 g/dL (6.0-8.3)
[2016-10-15 12:05] LABS: %MB 2.8 % (0.0-4.0); MB 177.8 ng/ml
[2016-10-15 12:07] LABS: ARTERIAL BLD GAS O2 SATURATION 82.5 % (90.0-100.0); ARTERIAL BLOOD GAS CARBOXY HB 0.4 %sat (0.0-9.0); ARTERIAL BLOOD GAS HCO3 25.9 mmol/L; ARTERIAL BLOOD GAS MET HB 0.9 %sat (0.0-2.0); ARTERIAL BLOOD GAS PCO2 48.5 mmHg (35.0-45.0); ARTERIAL BLOOD GAS pH 7.336 (7.350-7.450)
[2016-10-15 12:08] LABS: ARTERIAL BLOOD GAS DELIVERY VENT; ARTERIAL DRAW? NO
[2016-10-15 12:09] LABS: ARTERIAL BLOOD GAS VENT MODE A/C
[2016-10-15 19:09] LABS: ARTERIAL BLD GAS O2 SATURATION 98.2 % (90.0-100.0); ARTERIAL BLOOD GAS ALLEN TEST NORMAL; ARTERIAL BLOOD GAS ART SITE RIGHT RADIAL; ARTERIAL BLOOD GAS CARBOXY HB 0.3 %sat (0.0-9.0); ARTERIAL BLOOD GAS DELIVERY VENT; ARTERIAL BLOOD GAS HCO3 28.9 mmol/L; ARTERIAL BLOOD GAS MET HB 0.9 %sat (0.0-2.0); ARTERIAL BLOOD GAS PCO2 43.8 mmHg (35.0-45.0); ARTERIAL BLOOD GAS VENT MODE AC; ARTERIAL BLOOD GAS pH 7.428 (7.350-7.450); ARTERIAL DRAW? YES
[2016-10-16 03:55] LABS: BASOPHIL# 0.1 X10e3 (0-0.3); BASOPHIL% 0.7 % (0-2.5); EOSINOPHIL% 0.2 % (0.0-7.0); HEMOGLOBIN 11.2 gm/dL (13.0-16.0); LYMPHOCYTE# 2.4 X10e3 (1.0-3.5); LYMPHOCYTE% 13.4 % (17.0-45.0); MEAN CORPUSCULAR HEMOGLOBIN 30.4 PG (28-34); MEAN CORPUSCULAR HGB CONC 33.1 g/dL (30-36); MEAN PLATELET VOLUME 9.2 FL (6.5-11.5); MONOCYTE# 0.5 X10e3 (0-1.0); MONOCYTE% 2.8 % (3.0-12.0); NEUTROPHIL# 15.1 X10e3 (1.5-7.1); NEUTROPHIL% 82.9 % (40-75); PLATELET COUNT 146 X10e3 (140-420); RED CELL DISTRIBUTION WIDTH 15.8 % (11.0-15.5)
[2016-10-16 03:56] LABS: DIFF IND YES; MEAN CELL VOLUME 91.9 FL (83-96); WHITE BLOOD COUNT 18.2 X10e3 (4.0-10.5)
[2016-10-16 04:12] LABS: ARTERIAL BLD GAS O2 SATURATION 92.5 % (90.0-100.0); ARTERIAL BLOOD GAS CARBOXY HB 0.6 %sat (0.0-9.0); ARTERIAL BLOOD GAS HCO3 33.4 mmol/L; ARTERIAL BLOOD GAS MET HB 0.7 %sat (0.0-2.0); ARTERIAL BLOOD GAS PCO2 45.2 mmHg (35.0-45.0); ARTERIAL BLOOD GAS pH 7.477 (7.350-7.450)
[2016-10-16 04:13] LABS: ARTERIAL BLOOD GAS ALLEN TEST NORMAL; ARTERIAL BLOOD GAS ART SITE RIGHT RADIAL; ARTERIAL BLOOD GAS DELIVERY VENT; ARTERIAL BLOOD GAS PO2 64.5 mmHg (80.0-100); ARTERIAL BLOOD GAS VENT MODE AC; ARTERIAL DRAW? YES
[2016-10-16 04:17] LABS: CALCIUM SERUM 7.4 mg/dL (8.4-10.2); POTASSIUM 4.2 mmol/L (3.5-5.1)
[2016-10-16 04:23] LABS: ANISOCYTOSIS SL; PLATELET ESTIMATE NORMAL (NORMAL)
[2016-10-16 04:24] LABS: SPHEROCYTE SL
[2016-10-16 04:25] LABS: TEAR DROP CELLS PRESENT
[2016-10-16 04:27] LABS: ALBUMIN SERUM 2.4 g/dL (3.5-5.0); BILIRUBIN,TOTAL 0.8 mg/dL (0.2-2.0); CREATININE SERUM 1.5 mg/dL (0.6-1.4); GLOM FILT RATE Estimated 48.5 mL/min (>60); PROTEIN TOTAL SERUM 4.5 g/dL (6.0-8.3)
[2016-10-17 04:03] LABS: BASOPHIL% 0.2 % (0-2.5); EOSINOPHIL% 0.2 % (0.0-7.0); HEMATOCRIT 30.3 % (38.0-50.0); HEMOGLOBIN 10.1 gm/dL (13.0-16.0); LYMPHOCYTE% 10.2 % (17.0-45.0); MEAN CELL VOLUME 91.1 FL (83-96); MEAN CORPUSCULAR HEMOGLOBIN 30.4 PG (28-34); MEAN CORPUSCULAR HGB CONC 33.4 g/dL (30-36); MEAN PLATELET VOLUME 8.7 FL (6.5-11.5); MONOCYTE# 0.4 X10e3 (0-1.0); MONOCYTE% 2.1 % (3.0-12.0); NEUTROPHIL# 17.4 X10e3 (1.5-7.1); NEUTROPHIL% 87.3 % (40-75); PLATELET COUNT 127 X10e3 (140-420); RED BLOOD COUNT 3.32 X10e (3.90-5.60); RED CELL DISTRIBUTION WIDTH 15.6 % (11.0-15.5); WHITE BLOOD COUNT 19.9 X10e3 (4.0-10.5)
[2016-10-17 04:04] LABS: DIFF IND NO
[2016-10-17 04:44] LABS: CALCIUM SERUM 7.7 mg/dL (8.4-10.2); POTASSIUM 3.2 mmol/L (3.5-5.1)
[2016-10-17 05:03] LABS: ALBUMIN SERUM 2.4 g/dL (3.5-5.0); BILIRUBIN, DIRECT 0.2 mg/dL (0.0-0.2); BILIRUBIN,TOTAL 0.6 mg/dL (0.2-2.0); BUN/CREATININE RATIO 25.55; CREATININE SERUM 0.9 mg/dL (0.6-1.4); GLOM FILT RATE Estimated 89.9 mL/min (>60); PROTEIN TOTAL SERUM 5.3 g/dL (6.0-8.3)
[2016-10-17 23:41] LABS: CALCIUM SERUM 7.7 mg/dL (8.4-10.2); POTASSIUM 3.5 mmol/L (3.5-5.1)
[2016-10-17 23:50] LABS: BUN/CREATININE RATIO 18.75; CREATININE SERUM 0.8 mg/dL (0.6-1.4); GLOM FILT RATE Estimated 94.4 mL/min (>60)
[2016-10-18 06:34] LABS: BASOPHIL# 0.1 X10e3 (0-0.3); BASOPHIL% 0.6 % (0-2.5); EOSINOPHIL# 0.3 X10e3 (0-0.7); EOSINOPHIL% 2.2 % (0.0-7.0); HEMATOCRIT 30.3 % (38.0-50.0); HEMOGLOBIN 10.1 gm/dL (13.0-16.0); LYMPHOCYTE# 1.9 X10e3 (1.0-3.5); LYMPHOCYTE% 12.4 % (17.0-45.0); MEAN CELL VOLUME 91.8 FL (83-96); MEAN CORPUSCULAR HEMOGLOBIN 30.7 PG (28-34); MEAN CORPUSCULAR HGB CONC 33.5 g/dL (30-36); MEAN PLATELET VOLUME 8.6 FL (6.5-11.5); MONOCYTE# 0.8 X10e3 (0-1.0); MONOCYTE% 5.5 % (3.0-12.0); NEUTROPHIL% 79.3 % (40-75); PLATELET COUNT 122 X10e3 (140-420); RED CELL DISTRIBUTION WIDTH 15.2 % (11.0-15.5); WHITE BLOOD COUNT 15.2 X10e3 (4.0-10.5)
[2016-10-18 06:37] LABS: DIFF IND NO
[2016-10-18 07:57] LABS: ALBUMIN SERUM 2.3 g/dL (3.5-5.0); BUN/CREATININE RATIO 16.25; CALCIUM SERUM 7.6 mg/dL (8.4-10.2); CREATININE SERUM 0.8 mg/dL (0.6-1.4); GLOM FILT RATE Estimated 94.4 mL/min (>60); POTASSIUM 4.5 mmol/L (3.5-5.1); PROTEIN TOTAL SERUM 5.3 g/dL (6.0-8.3)
[2016-10-18 07:58] LABS: BILIRUBIN, DIRECT 0.3 mg/dL (0.0-0.2); BILIRUBIN,INDIRECT 0.3 mg/dL (0.0-0.9); BILIRUBIN,TOTAL 0.6 mg/dL (0.2-2.0)
[2016-10-18 08:05] LABS: MAGNESIUM 2.1 mg/dL (1.6-3.0)
[2016-10-19 03:50] LABS: BASOPHIL# 0.1 X10e3 (0-0.3); BASOPHIL% 0.9 % (0-2.5); EOSINOPHIL# 0.3 X10e3 (0-0.7); EOSINOPHIL% 3.7 % (0.0-7.0); HEMATOCRIT 36.1 % (38.0-50.0); HEMOGLOBIN 11.8 gm/dL (13.0-16.0); LYMPHOCYTE% 21.5 % (17.0-45.0); MEAN CELL VOLUME 90.8 FL (83-96); MEAN CORPUSCULAR HEMOGLOBIN 29.8 PG (28-34); MEAN CORPUSCULAR HGB CONC 32.8 g/dL (30-36); MEAN PLATELET VOLUME 8.3 FL (6.5-11.5); MONOCYTE% 10.6 % (3.0-12.0); NEUTROPHIL# 5.8 X10e3 (1.5-7.1); NEUTROPHIL% 63.3 % (40-75); PLATELET COUNT 150 X10e3 (140-420); RED BLOOD COUNT 3.97 X10e (3.90-5.60); WHITE BLOOD COUNT 9.2 X10e3 (4.0-10.5)
[2016-10-19 03:55] LABS: DIFF IND NO
[2016-10-19 04:12] LABS: CALCIUM SERUM 8.5 mg/dL (8.4-10.2); CREATININE SERUM 0.8 mg/dL (0.6-1.4); GLOM FILT RATE Estimated 94.4 mL/min (>60); POTASSIUM 4.2 mmol/L (3.5-5.1)
[2016-10-19 08:29] LABS: ARTERIAL BLD GAS O2 SATURATION 96.2 % (90.0-100.0); ARTERIAL BLOOD GAS CARBOXY HB 0.6 %sat (0.0-9.0); ARTERIAL BLOOD GAS HCO3 28.1 mmol/L; ARTERIAL BLOOD GAS MET HB 0.7 %sat (0.0-2.0); ARTERIAL BLOOD GAS PCO2 39.4 mmHg (35.0-45.0); ARTERIAL BLOOD GAS PO2 95.3 mmHg (80.0-100); ARTERIAL BLOOD GAS pH 7.461 (7.350-7.450)
[2016-10-19 08:30] LABS: ARTERIAL BLOOD GAS ALLEN TEST NORMAL; ARTERIAL BLOOD GAS ART SITE LEFT RADIAL; ARTERIAL DRAW? YES
[2016-10-19 08:31] LABS: ARTERIAL BLOOD GAS DELIVERY VENT; ARTERIAL BLOOD GAS VENT MODE CPAP
[2016-10-19 16:17] LABS: BASOPHIL# 0.1 X10e3 (0-0.3); BASOPHIL% 0.9 % (0-2.5); EOSINOPHIL# 0.4 X10e3 (0-0.7); EOSINOPHIL% 4.3 % (0.0-7.0); HEMATOCRIT 41.1 % (38.0-50.0); HEMOGLOBIN 13.4 gm/dL (13.0-16.0); LYMPHOCYTE# 1.8 X10e3 (1.0-3.5); LYMPHOCYTE% 18.6 % (17.0-45.0); MEAN CELL VOLUME 91.1 FL (83-96); MEAN CORPUSCULAR HEMOGLOBIN 29.7 PG (28-34); MEAN CORPUSCULAR HGB CONC 32.6 g/dL (30-36); MEAN PLATELET VOLUME 8.3 FL (6.5-11.5); MONOCYTE# 1.1 X10e3 (0-1.0); MONOCYTE% 11.3 % (3.0-12.0); NEUTROPHIL# 6.4 X10e3 (1.5-7.1); NEUTROPHIL% 64.9 % (40-75); PLATELET COUNT 194 X10e3 (140-420); RED BLOOD COUNT 4.51 X10e (3.90-5.60); RED CELL DISTRIBUTION WIDTH 15.3 % (11.0-15.5); WHITE BLOOD COUNT 9.9 X10e3 (4.0-10.5)
[2016-10-19 16:18] LABS: DIFF IND NO
[2016-10-20 05:37] LABS: BASOPHIL% 0.3 % (0-2.5); EOSINOPHIL# 0.4 X10e3 (0-0.7); EOSINOPHIL% 4.3 % (0.0-7.0); HEMOGLOBIN 12.7 gm/dL (13.0-16.0); LYMPHOCYTE# 1.9 X10e3 (1.0-3.5); LYMPHOCYTE% 19.2 % (17.0-45.0); MEAN CELL VOLUME 91.1 FL (83-96); MEAN CORPUSCULAR HEMOGLOBIN 30.3 PG (28-34); MEAN CORPUSCULAR HGB CONC 33.3 g/dL (30-36); MEAN PLATELET VOLUME 8.4 FL (6.5-11.5); MONOCYTE# 1.3 X10e3 (0-1.0); MONOCYTE% 12.7 % (3.0-12.0); NEUTROPHIL# 6.3 X10e3 (1.5-7.1); NEUTROPHIL% 63.5 % (40-75); PLATELET COUNT 201 X10e3 (140-420); RED BLOOD COUNT 4.17 X10e (3.90-5.60); RED CELL DISTRIBUTION WIDTH 15.2 % (11.0-15.5)
[2016-10-20 05:39] LABS: DIFF IND NO
[2016-10-20 06:46] LABS: CALCIUM SERUM 8.2 mg/dL (8.4-10.2); POTASSIUM 3.2 mmol/L (3.5-5.1)
[2016-10-20 06:56] LABS: BUN/CREATININE RATIO 31.66; CREATININE SERUM 0.6 mg/dL (0.6-1.4); GLOM FILT RATE Estimated 106.3 mL/min (>60)
[2016-10-20 14:03] LABS: ARTERIAL BLD GAS O2 SATURATION 95.5 % (90.0-100.0); ARTERIAL BLOOD GAS CARBOXY HB 0.4 %sat (0.0-9.0); ARTERIAL BLOOD GAS HCO3 31.3 mmol/L; ARTERIAL BLOOD GAS MET HB 0.6 %sat (0.0-2.0); ARTERIAL BLOOD GAS PCO2 42.2 mmHg (35.0-45.0); ARTERIAL BLOOD GAS PO2 84.2 mmHg (80.0-100); ARTERIAL BLOOD GAS pH 7.478 (7.350-7.450)
[2016-10-20 14:05] LABS: ARTERIAL BLOOD GAS ALLEN TEST NORMAL; ARTERIAL BLOOD GAS ART SITE LEFT RADIAL; ARTERIAL BLOOD GAS DELIVERY VENT; ARTERIAL BLOOD GAS VENT MODE CPAP; ARTERIAL DRAW? YES
[2016-10-21 05:27] LABS: BASOPHIL# 0.1 X10e3 (0-0.3); BASOPHIL% 0.6 % (0-2.5); EOSINOPHIL# 0.8 X10e3 (0-0.7); HEMATOCRIT 36.7 % (38.0-50.0); LYMPHOCYTE# 3.1 X10e3 (1.0-3.5); LYMPHOCYTE% 28.8 % (17.0-45.0); MEAN CELL VOLUME 90.9 FL (83-96); MEAN CORPUSCULAR HEMOGLOBIN 29.8 PG (28-34); MEAN CORPUSCULAR HGB CONC 32.7 g/dL (30-36); MEAN PLATELET VOLUME 8.3 FL (6.5-11.5); MONOCYTE# 1.3 X10e3 (0-1.0); MONOCYTE% 12.2 % (3.0-12.0); NEUTROPHIL# 5.6 X10e3 (1.5-7.1); NEUTROPHIL% 51.4 % (40-75); PLATELET COUNT 255 X10e3 (140-420); RED BLOOD COUNT 4.04 X10e (3.90-5.60); RED CELL DISTRIBUTION WIDTH 14.7 % (11.0-15.5); WHITE BLOOD COUNT 10.9 X10e3 (4.0-10.5)
[2016-10-21 05:42] LABS: DIFF IND NO
[2016-10-21 06:38] LABS: CALCIUM SERUM 8.3 mg/dL (8.4-10.2); POTASSIUM 4.1 mmol/L (3.5-5.1)
[2016-10-21 07:04] LABS: BUN/CREATININE RATIO 31.25; CREATININE SERUM 0.8 mg/dL (0.6-1.4); GLOM FILT RATE Estimated 94.4 mL/min (>60); MAGNESIUM 1.9 mg/dL (1.6-3.0)
[2016-10-21 09:48] LABS: ARTERIAL BLD GAS O2 SATURATION 96.8 % (90.0-100.0); ARTERIAL BLOOD GAS CARBOXY HB 0.6 %sat (0.0-9.0); ARTERIAL BLOOD GAS HCO3 31.8 mmol/L; ARTERIAL BLOOD GAS PCO2 44.6 mmHg (35.0-45.0); ARTERIAL BLOOD GAS pH 7.461 (7.350-7.450)
[2016-10-21 09:49] LABS: ARTERIAL BLOOD GAS ALLEN TEST NORMAL; ARTERIAL BLOOD GAS ART SITE LEFT RADIAL; ARTERIAL DRAW? YES
[2016-10-21 09:50] LABS: ARTERIAL BLOOD GAS DELIVERY VENT; ARTERIAL BLOOD GAS VENT MODE CPAP
[2016-10-22 05:39] LABS: BASOPHIL% 0.4 % (0-2.5); EOSINOPHIL% 0.2 % (0.0-7.0); HEMATOCRIT 36.2 % (38.0-50.0); HEMOGLOBIN 11.9 gm/dL (13.0-16.0); LYMPHOCYTE# 2.2 X10e3 (1.0-3.5); LYMPHOCYTE% 18.9 % (17.0-45.0); MEAN CELL VOLUME 90.8 FL (83-96); MEAN CORPUSCULAR HEMOGLOBIN 29.8 PG (28-34); MEAN CORPUSCULAR HGB CONC 32.8 g/dL (30-36); MEAN PLATELET VOLUME 8.5 FL (6.5-11.5); MONOCYTE# 0.7 X10e3 (0-1.0); MONOCYTE% 6.5 % (3.0-12.0); NEUTROPHIL# 8.5 X10e3 (1.5-7.1); PLATELET COUNT 340 X10e3 (140-420); RED BLOOD COUNT 3.98 X10e (3.90-5.60); RED CELL DISTRIBUTION WIDTH 14.9 % (11.0-15.5); WHITE BLOOD COUNT 11.4 X10e3 (4.0-10.5)
[2016-10-22 05:44] LABS: DIFF IND NO
[2016-10-22 07:05] LABS: BUN/CREATININE RATIO 42.85; CREATININE SERUM 0.7 mg/dL (0.6-1.4); GLOM FILT RATE Estimated 99.8 mL/min (>60); POTASSIUM 3.4 mmol/L (3.5-5.1)
[2016-10-22 07:06] LABS: CALCIUM SERUM 8.5 mg/dL (8.4-10.2); MAGNESIUM 2.1 mg/dL (1.6-3.0)
[2016-10-23 05:26] LABS: BASOPHIL# 0.1 X10e3 (0-0.3); BASOPHIL% 0.5 % (0-2.5); EOSINOPHIL% 0.3 % (0.0-7.0); HEMATOCRIT 39.5 % (38.0-50.0); LYMPHOCYTE% 21.2 % (17.0-45.0); MEAN CELL VOLUME 91.2 FL (83-96); MEAN CORPUSCULAR HEMOGLOBIN 29.9 PG (28-34); MEAN CORPUSCULAR HGB CONC 32.8 g/dL (30-36); MEAN PLATELET VOLUME 8.7 FL (6.5-11.5); MONOCYTE# 1.4 X10e3 (0-1.0); MONOCYTE% 9.7 % (3.0-12.0); NEUTROPHIL# 9.7 X10e3 (1.5-7.1); NEUTROPHIL% 68.3 % (40-75); PLATELET COUNT 499 X10e3 (140-420); RED BLOOD COUNT 4.33 X10e (3.90-5.60); RED CELL DISTRIBUTION WIDTH 14.7 % (11.0-15.5); WHITE BLOOD COUNT 14.2 X10e3 (4.0-10.5)
[2016-10-23 05:35] LABS: DIFF IND NO
[2016-10-23 06:12] LABS: CALCIUM SERUM 8.8 mg/dL (8.4-10.2); POTASSIUM 3.2 mmol/L (3.5-5.1)
[2016-10-23 06:22] LABS: BUN/CREATININE RATIO 33.75; CREATININE SERUM 0.8 mg/dL (0.6-1.4); GLOM FILT RATE Estimated 94.4 mL/min (>60); MAGNESIUM 2.1 mg/dL (1.6-3.0)
[2016-10-24 04:17] LABS: BASOPHIL# 0.1 X10e3 (0-0.3); BASOPHIL% 0.7 % (0-2.5); EOSINOPHIL% 0.1 % (0.0-7.0); HEMATOCRIT 38.1 % (38.0-50.0); HEMOGLOBIN 12.4 gm/dL (13.0-16.0); LYMPHOCYTE# 2.4 X10e3 (1.0-3.5); LYMPHOCYTE% 20.9 % (17.0-45.0); MEAN CELL VOLUME 91.1 FL (83-96); MEAN CORPUSCULAR HEMOGLOBIN 29.5 PG (28-34); MEAN CORPUSCULAR HGB CONC 32.4 g/dL (30-36); MONOCYTE# 1.7 X10e3 (0-1.0); MONOCYTE% 14.4 % (3.0-12.0); NEUTROPHIL# 7.4 X10e3 (1.5-7.1); NEUTROPHIL% 63.9 % (40-75); PLATELET COUNT 564 X10e3 (140-420); RED BLOOD COUNT 4.18 X10e (3.90-5.60); RED CELL DISTRIBUTION WIDTH 14.9 % (11.0-15.5); WHITE BLOOD COUNT 11.6 X10e3 (4.0-10.5)
[2016-10-24 04:26] LABS: DIFF IND NO
[2016-10-24 04:30] LABS: INR 1.1; PARTIAL THROMBOPLASTIN TIME 23.8 SECONDS (23.5-31.3); PROTHROMBIN TIME (PATIENT) 11.7 SECONDS (10.0-11.7)
[2016-10-24 04:36] LABS: CALCIUM SERUM 8.4 mg/dL (8.4-10.2)
[2016-10-24 04:44] LABS: BUN/CREATININE RATIO 32.85; CREATININE SERUM 0.7 mg/dL (0.6-1.4); GLOM FILT RATE Estimated 99.8 mL/min (>60)
[2016-10-24 04:48] LABS: POTASSIUM 2.8 mmol/L (3.5-5.1)
[2016-10-25 14:13] LABS: BASOPHIL# 0.1 X10e3 (0-0.3); BASOPHIL% 0.6 % (0-2.5); EOSINOPHIL# 0.1 X10e3 (0-0.7); EOSINOPHIL% 0.8 % (0.0-7.0); HEMATOCRIT 40.9 % (38.0-50.0); HEMOGLOBIN 13.1 gm/dL (13.0-16.0); LYMPHOCYTE# 4.4 X10e3 (1.0-3.5); LYMPHOCYTE% 31.2 % (17.0-45.0); MEAN CELL VOLUME 92.2 FL (83-96); MEAN CORPUSCULAR HEMOGLOBIN 29.6 PG (28-34); MEAN PLATELET VOLUME 8.4 FL (6.5-11.5); MONOCYTE# 1.7 X10e3 (0-1.0); NEUTROPHIL# 7.9 X10e3 (1.5-7.1); NEUTROPHIL% 55.4 % (40-75); PLATELET COUNT 677 X10e3 (140-420); RED BLOOD COUNT 4.44 X10e (3.90-5.60); RED CELL DISTRIBUTION WIDTH 14.6 % (11.0-15.5); WHITE BLOOD COUNT 14.2 X10e3 (4.0-10.5)
[2016-10-25 14:17] LABS: DIFF IND NO
[2016-10-25 15:31] LABS: CREATININE SERUM 0.9 mg/dL (0.6-1.4); GLOM FILT RATE Estimated 89.9 mL/min (>60); POTASSIUM 3.7 mmol/L (3.5-5.1)
[2016-10-25 15:32] LABS: CALCIUM SERUM 9.1 mg/dL (8.4-10.2); MAGNESIUM 1.6 mg/dL (1.6-3.0)
[2016-10-26 13:25] LABS: CALCIUM SERUM 9.1 mg/dL (8.4-10.2); POTASSIUM 3.9 mmol/L (3.5-5.1)
[2016-10-26 13:34] LABS: BUN/CREATININE RATIO 26.66; CREATININE SERUM 0.6 mg/dL (0.6-1.4); GLOM FILT RATE Estimated 106.3 mL/min (>60); MAGNESIUM 1.6 mg/dL (1.6-3.0)
[2016-10-27] MEDS ORDERED: ACETAMINOPHEN PO (10:22)
[2016-10-27] MEDS ORDERED: ZOLOFT100 MG PO (10:23)
[2016-10-27] MEDS ORDERED: WELLBUTRIN75 M1 PO (10:23)
[2016-10-27] MEDS ORDERED: DESYREL100 MG PO (10:24)
[2016-10-27] MEDS ORDERED: ATORVASTATIN CA80 MG PO (10:24)
[2016-10-27] MEDS ORDERED: LOPRESSOR PO (10:25)
[2016-10-27] MEDS ORDERED: RISPERDAL0.5 M1 PO (10:25)
[2016-10-27] MEDS ORDERED: DULCOLAX10 MG PR (10:26)
[2016-10-27] MEDS ORDERED: DOCUSATE SODIU100 MG PO (10:27)
[2016-10-27] MEDS ORDERED: LASIX PO (10:28)
[2016-10-27] MEDS ORDERED: MIRALAX17 G2 PO (10:28)
[2016-10-27] MEDS ORDERED: LISINOPRIL10 MG PO ×2 (10:29→11:27)
[2016-10-27] MEDS ORDERED: ASPIRIN81 MG PO (10:29)
[2016-10-27] MEDS ORDERED: AUGMENTIN PO (10:31)
[2016-10-27] MEDS ORDERED: PERCOCET5/325 PO ×2 (10:31→11:26)
[2016-10-27] MEDS ORDERED: ALDACTONE PO (10:32)
[2016-10-27] MEDS ORDERED: KLOR-CON PO (10:34)
[2016-10-27] MEDS ORDERED: PROTONIX PO (11:26)
== END 2016-10-27 15:30 | disposition home health service (06) | DRG 917 ==
LOC: CED 19:10 → CICCU3 22:21 → CED 22:21 → CEDOF 22:21 → CICCU3 22:41 → CEDOF 22:41 → CICCU3 10-15 01:38 → CEDOF 10-15 01:38 → CICCU3 10-15 07:37 → C3A PCU 10-24 19:38
PROVIDERS: Emergency Medicine; Internal Medicine; Internal Medicine Cardiovascular Disease; Internal Medicine Gastroenterology; Internal Medicine Nephrology; Internal Medicine Pulmonary Disease; Urology
PROC: 0BH17EZ Insertion of Endotracheal Airway into Trachea, Via Natural or Artificial Opening (ICD-10-PCS; principal; 2016-10-14)
PROC: 5A1955Z Respiratory Ventilation, Greater than 96 Consecutive Hours (ICD-10-PCS; 2016-10-14)
PROC: 0D9670Z Drainage of Stomach with Drainage Device, Via Natural or Artificial Opening (ICD-10-PCS; 2016-10-14)
PROC: 02HV33Z Insertion of Infusion Device into Superior Vena Cava, Percutaneous Approach (ICD-10-PCS; 2016-10-15)
PROC: 4A02X4A Measurement of Cardiac Electrical Activity, Guidance, External Approach (ICD-10-PCS; 2016-10-15)
PROC: B24BYZZ Ultrasonography of Heart with Aorta using Other Contrast (ICD-10-PCS; 2016-10-15)
PROC: 0DB68ZX Excision of Stomach, Via Natural or Artificial Opening Endoscopic, Diagnostic (ICD-10-PCS; 2016-10-20)
PROC: 4A023N7 Measurement of Cardiac Sampling and Pressure, Left Heart, Percutaneous Approach (ICD-10-PCS; 2016-10-24)
PROC: B211YZZ Fluoroscopy of Multiple Coronary Arteries using Other Contrast (ICD-10-PCS; 2016-10-24)
PROC: B215YZZ Fluoroscopy of Left Heart using Other Contrast (ICD-10-PCS; 2016-10-24)
DX: T40.2X1A Poisoning by other opioids, accidental (unintentional), initial encounter (principal); J69.0 Pneumonitis due to inhalation of food and vomit; I21.4 Non-ST elevation (NSTEMI) myocardial infarction; R65.21 Severe sepsis with septic shock; G92 Toxic encephalopathy; A41.9 Sepsis, unspecified organism; J96.01 Acute respiratory failure with hypoxia; J96.90 Respiratory failure, unspecified, unspecified whether with hypoxia or hypercapnia; I50.23 Acute on chronic systolic (congestive) heart failure; J96.02 Acute respiratory failure with hypercapnia; M62.82 Rhabdomyolysis; K92.2 Gastrointestinal hemorrhage, unspecified; C91.10 Chronic lymphocytic leukemia of B-cell type not having achieved remission; N17.9 Acute kidney failure, unspecified; E44.0 Moderate protein-calorie malnutrition; D62 Acute posthemorrhagic anemia; G43.909 Migraine, unspecified, not intractable, without status migrainosus; N40.0 Benign prostatic hyperplasia without lower urinary tract symptoms; E78.5 Hyperlipidemia, unspecified; F41.9 Anxiety disorder, unspecified; F32.9 Major depressive disorder, single episode, unspecified; F17.290 Nicotine dependence, other tobacco product, uncomplicated; Z86.718 Personal history of other venous thrombosis and embolism; G89.4 Chronic pain syndrome; Z79.82 Long term (current) use of aspirin; K25.9 Gastric ulcer, unspecified as acute or chronic, without hemorrhage or perforation; K20.9 Esophagitis, unspecified; E87.6 Hypokalemia; R19.7 Diarrhea, unspecified; R13.11 Dysphagia, oral phase; E11.65 Type 2 diabetes mellitus with hyperglycemia; E83.51 Hypocalcemia; Z68.25 Body mass index [BMI] 25.0-25.9, adult
CPT/HCPCS: 36415; 36600; 51702; 70450; 71010; 71020; 74000; 80048; 80053; 80061; 80076; 80307; 81003; 82248; 82274; 82550; 82553; 82803; 82947; 83605; 83735; 84132; 84443; 84484; 85025; 85610; 85730; 86335; 87040; 87070; 87077; 87205; 87493; 92526; 92610; 93005; 93306; 94002; 94003; 94640; 94660; 94760; 94761; 96374; 97116; 97162; 97167; 97530; 97535; 99152; 99153; 99291; C1769; C1887; C1894; C9113; G0480; G8978-GP; G8979-GP; G8987-GO; G8988-GO; G8996-GN; G8997-GN; J0360; J1250; J1644; J1650; J2250; J2405; J2543; J2765; J2920; J3010; J3475; J3490